=== PATIENT | male | born 1990 | race Caucasian/White ===

== ENCOUNTER 2017-12-19 20:26 | Emergency (ER) | payer SELFPAY ==
[2017-12-19 20:27] VITALS: BP 160/79; PULSE 126; RESP 26; TEMP 37.1; O2SAT 99; BMI 19.5
--- NOTE | 2017-12-19 20:51 | HMH.EDOD ---
ED Disposition Clinical Impression: Drug overdose Qualifiers: Encounter type: initial encounter Injury intent: accidental or unintentional Qualified Code(s): T50.901A - Poisoning by unspecified drugs, medicaments and biological substances, accidental (unintentional), initial encounter Disposition: Home, Self-Care Condition on Discharge: Good Instructions: DI for Drug Overdose in Adults Additional Instructions: see pcp for follow up - Critical Care Critical Care Time: No Attestation: On , the high probability of a clinically significant, sudden or life threatening deterioration of the following system(s) required my full and direct attention, intervention and personal management. The time I documented below is in addition to time spent performing reported procedures but includes the following listed in this critical care notation. Medical Decision Making - Medical Records Medical records reviewed: Yes: I reviewed the patient's medical records. - Darryl Inquiry Pt receiving controlled substance: No Vital Signs: 12/19/17 20:27 12/19/17 22:47 12/19/17 23:00 Temperature 98.7 F 97.8 F 98.7 F Temperature Source Oral Oral Oral Pulse Rate [Right Radial] 126 H 95 H 65 Respiratory Rate 26 H 14 14 Blood Pressure [Right Arm] 160/79 115/61 118/60 Blood Pressure Mean [Right Arm] 106 79 79 Blood Pressure Position [Right Arm] Sitting Sitting Sitting 02 Sat by Pulse Oximetry 99 94 L 94 L Oxygen Delivery Method Room Air Room Air 12/19/17 23:30 12/20/17 01:30 12/20/17 02:00 Temperature 98.7 F Temperature Source Oral Pulse Rate [Right Radial] 76 87 79 Respiratory Rate 20 20 20 Blood Pressure [Right Arm] 114/67 110/56 104/56 Blood Pressure Mean [Right Arm] 82 74 72 Blood Pressure Position [Right Arm] Sitting Supine 02 Sat by Pulse Oximetry 98 99 100 Oxygen Delivery Method Room Air Room Air Room Air 12/20/17 04:00 12/20/17 06:00 Temperature Temperature Source Pulse Rate [Right Radial] 79 87 Respiratory Rate 20 18 Blood Pressure [Right Arm] 104/64 110/74 Blood Pressure Mean [Right Arm] 77 86 Blood Pressure Position [Right Arm] 02 Sat by Pulse Oximetry 99 97 Oxygen Delivery Method Room Air Orders (Tests/Meds): ED MEDICATIONS Discontinued Medications Generic Name Dose Route Start Last Admin Trade Name Freq PRN Reason Stop Dose Admin Haloperidol Lactate 2 mg 12/19/17 20:36 12/19/17 20:30 Haldol 5mg/Ml Vial IM 12/19/17 20:37 2 mg ONCE ONE Administration Haloperidol Lactate 5 mg 12/19/17 20:36 12/19/17 20:35 Haldol 5mg/Ml Vial IM 12/19/17 20:37 5 mg ONCE ONE Administration Overdose HPI - General Chief Complaint: Overdose Stated Complaint: overdose Time Seen by Provider: 12/19/17 20:51 Mode of Arrival: EMS Source of Information: Patient, EMS, Law Enforcement, Medical Record Limitations: No Limitations Description of Symptoms (Recalled from ER Triage Doc. by RN): received pt by ems, per ems, patient has done drugs of unknown amount and is hallucinating and paranoid. pt is violent and confused and combative. pd is at bedside for assistance. 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 nino VARGAS complaint: other (drug misuse ) Onset (ago): hour(s) Timing confirmed by: other (police) Intent: other (nonintentional) How Overdose Was Discovered: called 911 Context: Intentional Overdose: drug/ETOH problems Context: Accidental Overdose: wanted to get high - Related Data Home Medications Medication Instructions Recorded Confirmed No Known Home Medications [No 12/19/17 12/19/17 Known Home Medications] Allergies Allergy/AdvReac Type Severity Reaction Status Date / Time ibuprofen [IBUPROFEN] Allergy Severe S-SWELLS-OR Verified 12/19/17 20:35 AL/THROAT SHELLFISH (FOOD) Allergy Intermediate I-RASH Uncoded 09/13/17 14:51 [facility] History I have reviewed the patient's past medical history: Yes Medical
--- NOTE | 2017-12-19 20:54 | ED_ITS ---
ED Disposition Clinical Impression: Drug overdose Qualifiers: Encounter type: initial encounter Injury intent: accidental or unintentional Qualified Code(s): T50.901A - Poisoning by unspecified drugs, medicaments and biological substances, accidental (unintentional), initial encounter Disposition: Home, Self-Care Condition on Discharge: Good Instructions: DI for Drug Overdose in Adults Additional Instructions: see pcp for follow up - Critical Care Critical Care Time: No Attestation: On , the high probability of a clinically significant, sudden or life threatening deterioration of the following system(s) required my full and direct attention, intervention and personal management. The time I documented below is in addition to time spent performing reported procedures but includes the following listed in this critical care notation. Medical Decision Making - Medical Records Medical records reviewed: Yes: I reviewed the patient's medical records. - Darryl Inquiry Pt receiving controlled substance: No Vital Signs: 12/19/17 20:27 12/19/17 22:47 12/19/17 23:00 Temperature 98.7 F 97.8 F 98.7 F Temperature Source Oral Oral Oral Pulse Rate [Right Radial] 126 H 95 H 65 Respiratory Rate 26 H 14 14 Blood Pressure [Right Arm] 160/79 115/61 118/60 Blood Pressure Mean [Right Arm] 106 79 79 Blood Pressure Position [Right Arm] Sitting Sitting Sitting 02 Sat by Pulse Oximetry 99 94 L 94 L Oxygen Delivery Method Room Air Room Air 12/19/17 23:30 12/20/17 01:30 12/20/17 02:00 Temperature 98.7 F Temperature Source Oral Pulse Rate [Right Radial] 76 87 79 Respiratory Rate 20 20 20 Blood Pressure [Right Arm] 114/67 110/56 104/56 Blood Pressure Mean [Right Arm] 82 74 72 Blood Pressure Position [Right Arm] Sitting Supine 02 Sat by Pulse Oximetry 98 99 100 Oxygen Delivery Method Room Air Room Air Room Air 12/20/17 04:00 12/20/17 06:00 Temperature Temperature Source Pulse Rate [Right Radial] 79 87 Respiratory Rate 20 18 Blood Pressure [Right Arm] 104/64 110/74 Blood Pressure Mean [Right Arm] 77 86 Blood Pressure Position [Right Arm] 02 Sat by Pulse Oximetry 99 97 Oxygen Delivery Method Room Air Orders (Tests/Meds): ED MEDICATIONS Discontinued Medications Generic Name Dose Route Start Last Admin Trade Name Freq PRN Reason Stop Dose Admin Haloperidol Lactate 2 mg 12/19/17 20:36 12/19/17 20:30 Haldol 5mg/Ml Vial IM 12/19/17 20:37 2 mg ONCE ONE Administration Haloperidol Lactate 5 mg 12/19/17 20:36 12/19/17 20:35 Haldol 5mg/Ml Vial IM 12/19/17 20:37 5 mg ONCE ONE Administration Overdose HPI - General Chief Complaint: Overdose Stated Complaint: overdose Time Seen by Provider: 12/19/17 20:51 Mode of Arrival: EMS Source of Information: Patient, EMS, Law Enforcement, Medical Record Limitations: No Limitations Description of Symptoms (Recalled from ER Triage Doc. by RN): received pt by ems , per ems, patient has done drugs of unknown amount and is hallucinating and paranoid. pt is violent and confused and combative. pd is at bedside for assistance. - History of Present Illness HPI Narrative: used meth and had pschych
[2017-12-19 22:47] VITALS: BP 115/61; PULSE 95; RESP 14; TEMP 36.6; O2SAT 94
[2017-12-19 23:00] VITALS: BP 118/60; PULSE 65; RESP 14; TEMP 37.1; O2SAT 94
[2017-12-19 23:30] VITALS: BP 114/67; PULSE 76; RESP 20; TEMP 37.1; O2SAT 98
[2017-12-20 01:30] VITALS: BP 110/56; PULSE 87; RESP 20; O2SAT 99
--- NOTE | 2017-12-20 01:44 | PC.NURSE ---
pt mother updated on plan of care. pt remains disoriented and difficult to arouse. vitals stable. mom to report to ed in the am at approx 0700 to excelsior picker patient for dc home.
[2017-12-20 02:00] VITALS: BP 104/56; PULSE 79; RESP 20; O2SAT 100
[2017-12-20 04:00] VITALS: BP 104/64; PULSE 79; RESP 20; O2SAT 99
--- NOTE | 2017-12-20 04:32 | PC.NURSE ---
PATIENT CONTINUES TO SLEEP SOUNDLY IN STRETCHER WITH STABLE VS. PT AWAKENS EASILY TO VOICE, TAKES PO FLUIDS, AND GOES BACK TO SLEEP. NO NEEDS IDENTIFIED AT THIS TIME.
[2017-12-20 06:00] VITALS: BP 110/74; PULSE 87; RESP 18; O2SAT 97
--- NOTE | 2017-12-20 06:12 | PC.NURSE ---
PT HAS CONTINUED TO SLEEP SOUNDLY THROUGHOUT NIGHT. PT CONTINUES TO AWAKE TO VERBAL STIMULATION. DENIES PAIN. PT AWAITING MOTHERS ARRIVAL FOR DC.
[2017-12-20 09:30] VITALS: BP 112/67; PULSE 84; RESP 20; TEMP 36.8; O2SAT 96
--- NOTE | 2017-12-20 09:52 | PC.NURSE ---
Multiple attempts to contact pt mother to come pick him up. Mothers phone goes straight to voicemail when called.
[2017-12-20 10:50] VITALS: BP 123/80; PULSE 109; RESP 20; TEMP 36.7; O2SAT 96
== END 2017-12-20 10:50 | disposition home or self-care (01) ==
PROVIDERS: Emergency Provider Emergency Medicine
DX: T40.3X1A Poisoning by methadone, accidental (unintentional), initial encounter (principal); T40.7X1A Poisoning by cannabis (derivatives), accidental (unintentional), initial encounter; F17.210 Nicotine dependence, cigarettes, uncomplicated
CPT/HCPCS: 99285

== ENCOUNTER 2020-10-30 04:09 | Inpatient (IN) | payer MEDICARE, SELFPAY ==
[2020-10-30] VITALS (32 sets, daily range): BP systolic 98–162; BP diastolic 46–98; PULSE 64–114; RESP 15–18; TEMP 36.4–43; O2SAT 93–100; BMI 18.1
--- NOTE | 2020-10-30 04:29 | PC.NURSE ---
Spoke with Kelvin, Pharmacist in regards to Vanc dosing. He recommends 1.25gm loading dose then 1gm IV Q12H.
[2020-10-30 04:36] LABS: Basophils # 0.1 K/mm3 (0-0.2); Basophils % 0.5 % (0.1-2.0); Eosinophils # 0.2 K/mm3 (0.0-0.4); Eosinophils % 0.7 % (0.1-12.0); Hematocrit 47.9 % (42.0-52.0); Hemoglobin 15.4 g/dL (14.1-18.0); Lymphocytes # 2.8 K/mm3 (0.7-4.5); Lymphocytes % 12.5 % (10-50); Mean Corpuscular HGB Conc 32.1 g/dL (31.8-35.4); Mean Corpuscular Hemoglobin 27.1 pg (27.0-31.2); Mean Corpuscular Volume 84.4 fl (80-94); Monocytes # 1.7 K/mm3 (0.1-1.0); Monocytes % 7.5 % (1.7-9.3); Neutrophils # 17.6 K/mm3 (1.8-7.8); Neutrophils % 78.7 % (37.0-80.0); Platelet Count 258 K/mm3 (142-424); Red Blood Count 5.67 M/mm3 (4.60-6.20); Red Cell Distribution Width 12.5 % (11.5-17.5); White Blood Count 22.4 K/mm3 (4.8-10.8)
[2020-10-30 04:43] LABS: MANUAL DIFFERENTIAL MANUAL DIFFERENTIAL (MANUAL DIFF)
[2020-10-30 04:45] LABS: Alanine Aminotransferase 221 U/L (12-78); Albumin Level 4.5 g/dl (3.5-5.0); Alkaline Phosphatase 107 U/L (38-126); Anion Gap 11.4 mEq/L (5-15); Aspartate Amino Transferase 76 U/L (17-59); Bilirubin,Total 0.9 mg/dl (0.2-1.3); Blood Urea Nitrogen 16 mg/dl (9-20); Calcium 10.1 mg/dl (8.4-10.2); Carbon Dioxide 30 mmol/L (22.0-30.0); Chloride 96 mmol/L (98-107); Creatinine Clearance Estimated 101 mL/min (50-200); Estimated Glomerular Filt Rate 100 ml/min (>60); GFR (African American) 121 ML/MIN (>60); Globulin 4.6 g/dL (1.3-3.2); Glucose 125 mg/dl (74-100); Lactic Acid 1.5 mmol/L (0.7-2.1); Potassium 4.4 mmoL/L (3.5-5.1); Sodium 133 mmol/L (136-145); Total Protein,Serum 9.1 g/dl (6.3-8.2)
[2020-10-30 04:50] LABS: C-Reactive Protein 52.3 mg/L (0-4)
[2020-10-30 05:04] LABS: Procalcitonin 0.369 ng/mL (0.0-2.0)
[2020-10-30 05:49] LABS: Erythrocyte Sedimentation Rate 4 mm/hr (0-15)
[2020-10-30 05:50] LABS: Coronavirus 19 IgG Antibody Negative (Negative); Coronavirus 19 IgM Antibody Negative (Negative)
[2020-10-30 06:04] LABS: Lymphocytes % 15 % (10-50); Monocytes % 6 % (2-9); Neutrophils % 79 % (42-76); Platelet Estimate Normal; Stomatocytes 1+; Total Cells Counted 100
--- NOTE | 2020-10-30 06:29 | HMH.EDSKAF ---
ED Disposition Clinical Impression: Elevated liver enzymes, IVDU (intravenous drug user), SIRS (systemic inflammatory response syndrome) Abscess of skin or subcutaneous tissue Qualifiers: Site of cutaneous abscess: extremity Site of cutaneous abscess of extremity: upper extremity Laterality: left Qualified Code(s): L02.414 - Cutaneous abscess of left upper limb Disposition: Admitted as Observation Condition on Discharge: Fair Instructions: DI for Skin Abscess Referrals: PCP,No [Primary Care Provider] - - Critical Care Critical Care Time: No Attestation: On 10/30/20, the high probability of a clinically significant, sudden or life threatening deterioration of the following system(s) required my full and direct attention, intervention and personal management. The time I documented below is in addition to time spent performing reported procedures but includes the following listed in this critical care notation. Medical Decision Making - Medical Records Medical records reviewed: Yes: I reviewed the patient's medical records. - Darryl Inquiry Pt receiving controlled substance: No Vital Signs: 10/30/20 04:10 10/30/20 04:30 10/30/20 05:00 Temperature 99.0 F Temperature Source Oral Pulse Rate [Right] 114 H 76 74 Respiratory Rate 18 17 17 Blood Pressure [Right Arm] 114/70 119/74 115/71 Blood Pressure Mean [Right Arm] 84 89 85 Blood Pressure Source [Right Arm] Automatic Cuff Automatic Cuff Automatic Cuff Blood Pressure Position [Right Arm] Sitting Supine Supine 02 Sat by Pulse Oximetry 95 98 98 Oxygen Delivery Method Room Air Room Air Room Air 10/30/20 05:30 10/30/20 06:00 Temperature Temperature Source Pulse Rate [Right] 84 71 Respiratory Rate 17 15 Blood Pressure [Right Arm] 121/74 115/69 Blood Pressure Mean [Right Arm] 89 84 Blood Pressure Source [Right Arm] Automatic Cuff Automatic Cuff Blood Pressure Position [Right Arm] Supine Supine 02 Sat by Pulse Oximetry 98 97 Oxygen Delivery Method Room Air Room Air - Lab Data Lab results reviewed: Yes: I reviewed the patient's lab results. Lab Results 10/30/20 04:25: WBC 22.4 H*, RBC 5.67, Hgb 15.4, Hct 47.9, MCV 84.4, MCH 27.1, MCHC 32.1, RDW 12.5, Plt Count 258, MPV 9.0, Neut % (Auto) 78.7, Lymph % (Auto) 12.5, [place] % (Auto) 7.5, Eos % (Auto) 0.7, Baso % (Auto) 0.5, Neut # (Auto) 17.6 H, Lymph # (Auto) 2.8, [place] # (Auto) 1.7 H, Eos # (Auto) 0.2, Baso # (Auto) 0.1, Total Counted 100, Neutrophils % (Manual) 79 H, Lymphocytes % (Manual) 15, Monocytes % (Manual) 6, Platelet Estimate Normal, RBC Morphology Not Reportable, Stomatocytes 1+, ESR 4 10/30/20 04:25: Sodium 133 L, Potassium 4.4, Chloride 96 L, Carbon Dioxide 30, Anion Gap 11.4, BUN 16, Creatinine 0.90, Estimated Creat Clear 101, Estimated GFR 100, Est GFR ( Amer) 121, Glucose 125 H, Calcium 10.1, Total Bilirubin 0.9, AST 76 H, ALT 221 H, Alkaline Phosphatase 107, C-Reactive Protein 52.3 H, Total Protein 9.1 H, Albumin 4.5, Globulin 4.6 H, Albumin/Globulin Ratio 1.0 L, Procalcitonin 0.369 10/30/20 04:25: Lactate 1.5 10/30/20 04:25: SARS-CoV-2 IgG Ab (Rapid) Negative, SARS-CoV-2 IgM Ab (Rapid) Negative Result diagrams: 10/30/20 04:25 10/30/20 04:25 Orders (Tests/Meds): ED MEDICATIONS Generic Name Dose Route Start Last Admin Trade Name Freq PRN Reason Stop Dose Admin Sodium Chloride 1,000 mls @ 999 mls/hr 10/30/20 04:30 10/30/20 04:32 Sod Chlor 0.9% 1000ml Bag IV 10/30/20 05:30 999 mls/hr .Q1H1M YOSSI Administration Vancomycin HCl 1,000 mg/ 250 mls @ 125 mls/hr 10/30/20 04:29 10/30/20 06:30 Sodium Chloride IV 11/13/20 04:28 Not Given Q12 YOSSI Protocol Discontinued Medications Generic Name Dose Route Start Last Admin Trade Name Freq PRN Reason Stop Dose Admin Vancomycin HCl 1,250 mg/ 250 mls @ 125 mls/hr 10/30/20 04:32 10/30/20 04:32 Sodium Chloride IV 10/30/20 06:31 125 mls/hr ONCE ONE Administration Protocol ORDERS Category Date
--- NOTE | 2020-10-30 06:40 | PC.NURSE ---
Jake spoke to Marcos regarding pt admission and gen surg consult
--- NOTE | 2020-10-30 07:22 | HMH.GSCON ---
*Admission Date: 10/30/20 *Reason for consult:: Abscess *History of present illness: This is a 30-year-old gentleman seen in consultation from the service of Dr. Lake after being evaluated emergency department for a left antecubital fossa abscess. HPI from emergency department evaluation is forwarded below. From ED Evaluation: Skin/Abscess/FB HPI - General Chief complaint: Skin/Abscess/Foreign Body Stated complaint: Abscess Time Seen by Provider: 10/30/20 04:15 Mode of Arrival: EMS Source of Information: Patient, EMS, Medical Record Limitations: No Limitations Description of Symptoms (Recalled from ER Triage Doc. by RN): Pt has abscess to left AC after shooting Heroin there 4 days ago. Area is open and draining. - History of Present Illness HPI narrative: pt with hx of ivdu and has draining abscess lt forearm - he denied any other c/o MD complaint: abscess/boil Onset (ago): day(s) Tetanus up to date: unsure Location: LUE Severity: moderate Context: IVDA Associated symptoms: denies other symptoms Treatments prior to arrival: none Review of Systems - Constitutional Denies chills - Eyes Denies change in vision - ENT Denies difficulty swallowing - *Cardiovascular Denies chest pain - *Respiratory Denies cough - *Gastrointestinal Denies abdominal pain - *Genitourinary Denies difficulty urinating - *Musculoskeletal Denies abnormal walking - Integumentary/Breasts Reports boil - *Neurologic Denies abnormal speech - Psychiatric Denies anxiety - Endocrine Denies cold intolerance - Hematologic/Lymphatic Denies easy bleeding - Allergic/Immunologic Denies wheezing [facility] History Medical History: Denies:: Cancer, Diabetes Mellitus Type 1, Diabetes Mellitus Type 2, MRSA *Have you ever received a pneumonia vaccine?: No *Have you received a flu vaccine this season?: Yes Amputation: No Fractures: No - *Social History Smoking Status: Current every day smoker Tobacco Type: cigarettes # Packs/Day (cigarettes): 1 Alcohol Intake: current Alcohol Intake Frequency:: other Substance Use Type: heroin, IV drugs 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 *Occupational Status:: unemployed Housing: homeless *Travel in the last 8 weeks: None Family Hx:: No significant family history Meds Home Medications Medication Instructions Recorded Confirmed Type No Known Home Medications 10/30/20 10/30/20 History Allergies Allergy/AdvReac Type Severity Reaction Status Date / Time ibuprofen [IBUPROFEN] Allergy Severe S-SWELLS-OR Verified 04/19/19 20:56 AL/THROAT shellfish derived Allergy Intermediate Rash Verified 10/30/20 08:13 Exam Vital signs and Labs for Last 24 Hours: Temp Pulse Resp BP Pulse Ox 99.0 F 71 15 115/69 97 10/30/20 04:10 10/30/20 06:00 10/30/20 06:00 10/30/20 06:00 10/30/20 06:00 Laboratory Results - last 24 hr 10/30/20 04:25: WBC 22.4 H*, RBC 5.67, Hgb 15.4, Hct 47.9, MCV 84.4, MCH 27.1, MCHC 32.1, RDW 12.5, Plt Count 258, MPV 9.0, Neut % (Auto) 78.7, Lymph % (Auto) 12.5, [place] % (Auto) 7.5, Eos % (Auto) 0.7, Baso % (Auto) 0.5, Neut # (Auto) 17.6 H, Lymph # (Auto) 2.8, [place] # (Auto) 1.7 H, Eos # (Auto) 0.2, Baso # (Auto) 0.1, Total Counted 100, Neutrophils % (Manual) 79 H, Lymphocytes % (Manual) 15, Monocytes % (Manual) 6, Platelet Estimate Normal, RBC Morphology Not Reportable, Stomatocytes 1+, ESR 4 10/30/20 04:25: Sodium 133 L, Potassium 4.4, Chloride 96 L, Carbon Dioxide 30, Anion Gap 11.4, BUN 16, Creatinine 0.90, Estimated Creat Clear 101, Estimated GFR 100, Est GFR ( Amer) 121, Glucose 125 H, Calcium 10.1, Total Bilirubin 0.9, AST 76 H, ALT 221 H, Alkaline Phosphatase 107, C-Reactive Protein 52.3 H, Total Protein 9.1 H, Albumin 4.5, Globulin 4.6 H, Albumin/Globulin Ratio 1.0 L, Procalcitonin 0.369 10/30/20 04:25: Lactate 1.5 10/30/20 04:25: SARS-CoV-2 IgG Ab (Rapid) Negative, SARS-CoV-2 IgM Ab (Rapid) Negative I & O for Last 24 hours: Intake & Output
--- NOTE | 2020-10-30 07:45 | PC.NURSE ---
pt changed into hospital gown. pt's belonging placed in belonging bag.
--- NOTE | 2020-10-30 08:09 | P.CONPHA_ITS ---
- Pharmacy Consult Date: 10/30/20 Time: 08:09 Referring provider: DR. GARCIA Reason for Consult:: VANCOMYCIN DOSING Allergies and ADEs:: Allergies Allergy/AdvReac Type Severity Reaction Status Date / Time ibuprofen [IBUPROFEN] Allergy Severe S-SWELLS-OR Verified 04/19/19 20:56 AL/THROAT SHELLFISH (FOOD) Allergy Intermediate I-RASH Uncoded 09/13/17 14:51 Home Medications:: Home Medications Medication Instructions Recorded Confirmed Type No Known Home Medications 10/30/20 10/30/20 History Height: 1.8 m Weight: 58.967 kg Laboratory Results:: Laboratory Results - last 24 hr 10/30/20 04:25: WBC 22.4 H*, RBC 5.67, Hgb 15.4, Hct 47.9, MCV 84.4, MCH 27.1, MCHC 32.1, RDW 12.5, Plt Count 258, MPV 9.0, Neut % (Auto) 78.7, Lymph % (Auto) 12.5, [place] % (Auto) 7.5, Eos % (Auto) 0.7, Baso % (Auto) 0.5, Neut # (Auto) 17.6 H, Lymph # (Auto) 2.8, [place] # (Auto) 1.7 H, Eos # (Auto) 0.2, Baso # (Auto) 0.1, Total Counted 100, Neutrophils % (Manual) 79 H, Lymphocytes % (Manual) 15, Monocytes % (Manual) 6, Platelet Estimate Normal, RBC Morphology Not Reportable, Stomatocytes 1+, ESR 4 10/30/20 04:25: Sodium 133 L, Potassium 4.4, Chloride 96 L, Carbon Dioxide 30, Anion Gap 11.4, BUN 16, Creatinine 0.90, Estimated Creat Clear 101, Estimated GFR 100, Est GFR ( Amer) 121, Glucose 125 H, Calcium 10.1, Total Bilirubin 0.9, AST 76 H, ALT 221 H, Alkaline Phosphatase 107, C-Reactive Protein 52.3 H, Total Protein 9.1 H, Albumin 4.5, Globulin 4.6 H, Albumin/Globulin Ratio 1.0 L, Procalcitonin 0.369 10/30/20 04:25: Lactate 1.5 10/30/20 04:25: SARS-CoV-2 IgG Ab (Rapid) Negative, SARS-CoV-2 IgM Ab (Rapid) Negative Medical History: Denies:: Cancer, Diabetes Mellitus Type 1, Diabetes Mellitus Type 2, MRSA Assessment and Plan (1) Abscess of skin or subcutaneous tissue Status: Acute Qualifiers: Site of cutaneous abscess: extremity Site of cutaneous abscess of extremity: upper extremity Laterality: left Qualified Code(s): L02.414 - Cutaneous abscess of left upper limb Category: Medical Code(s): L02.91 - Cutaneous abscess, unspecified - Assessment and plan all Dx Assessment and Plan for all problems:: Age: 30 yo Serum creatinine: 0.9 mg/dL Height: 71.0 Inches Weight (kg): 58.967 Assessment: IBW (kg): 75.30 Dosing wt(kg): 58.967 Estimated Creatinine clearance (ml/min): 101.0 CRCL method: Cockcroft and Gault using ibw(default). Drug selected: Vancomycin Loading dose (mg): 0 Vd (liters): 47.2 (factor used: 0.8 L/kg) Walter (hr-1): 0.088 Half life (hrs): 7.88 Recommended dose: 1250 mg Interval: 12 hrs Infusion time (hrs): 2.0 Predicted peak (mcg/mL): 37.2 Predicted trough (mcg/mL): 15.43 Total body weight is being used for vancomycin dosing. Recommendations: Give Vancomycin 1250 mg q 12 hrs with an expected Cpeak of 37.2 mcg/ml and an expected Ctrough of 15.43 mcg/ml Thank you for the consult, will continue to follow.
--- NOTE | 2020-10-30 08:15 | PC.NURSE ---
pt c/o pain 07/05 lt arm .
--- NOTE | 2020-10-30 09:30 | PC.NURSE ---
pt updated on plan of care
--- NOTE | 2020-10-30 09:41 | PC.NURSE ---
Pt sleeping at this time. No needs
--- NOTE | 2020-10-30 10:25 | HMH.HP ---
*Admission Date: 10/30/20 <Agnes Cavanaugh 10/30/20 10:30> *Chief complaint: abscess after IV drug use <Agnes Cavanaugh 10/30/20 10:30> *History of present illness: Mr. Monterroso is a 30yo male who presented to the ER with an abscess in the left antecubital fossa after shooting heroin there four days ago. His white blood cell count was elevated at 22.4. His liver function tests were also elevated. His C-reactive protein was elevated as well. He had negative Covid antibodies. A culture was taken of the left arm and his blood cultures are still pending. The area was open and draining and he was admitted and surgery was consulted. He was started on IV vancomycin. <Agnes Cavanaugh 10/30/20 12:55> [facility] History I have reviewed the patient's past medical history: Yes <Agnes Cavanaugh 10/30/20 10:30> Medical History: Denies:: Gastrointestinal Bleed <Leda Lake 10/30/20 13:35> Denies:: Cancer, Diabetes Mellitus Type 1, Diabetes Mellitus Type 2, MRSA <Agnes Cavanaugh 10/30/20 10:30> *Have you ever received a pneumonia vaccine?: No <Agnes Cavanaugh 10/30/20 10:30> *Have you received a flu vaccine this season?: Yes <Agnes Cavanaugh 10/30/20 10:30> Amputation: No <Agnes Cavanaugh 10/30/20 10:30> Fractures: No <Agnes Cavanaugh 10/30/20 10:30> - *Social History Smoking Status: Current every day smoker <Agnes Cavanaugh 10/30/20 10:30> Tobacco Type: cigarettes <Agnes Cavanaugh 10/30/20 10:30> # Packs/Day (cigarettes): 1 <Agnes Cavanaugh 10/30/20 10:30> Alcohol Intake: never <Agnes Cavanaugh 10/30/20 10:30> Substance Use Type: painkillers, methamphetamine <Leda Lake 10/30/20 13:35> heroin, IV drugs <Agnes Cavanaugh 10/30/20 10:30> 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 <Agnes Cavanaugh 10/30/20 10:30> *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) <Leda Lake 10/30/20 13:35> unemployed <Agnes Cavanaugh 10/30/20 10:30> Housing: homeless <Agnes Cavanaugh 10/30/20 10:30> *Travel in the last 8 weeks: None <Agnes Cavanaugh 10/30/20 10:30> Family Hx:: Substance abuse <Leda Lake 10/30/20 13:35> Review of Systems - Constitutional Denies body ache(s), Denies chills <Leda Lake 10/30/20 13:35> - Eyes Denies change in vision <Leda Lake 10/30/20 13:35> - ENT Reports mouth lesions, Denies difficulty swallowing <Leda Lake 10/30/20 13:35> - *Cardiovascular Denies chest pain, Denies shortness of breath <Leda Lake 10/30/20 13:35> - *Respiratory Reports chest congestion, Reports cough <Leda Lake 10/30/20 13:35> - *Gastrointestinal Denies abdominal pain <Leda Lake 10/30/20 13:35> - *Genitourinary Denies difficulty urinating <Leda Lake 10/30/20 13:35> - *Musculoskeletal Denies abnormal walking <Leda Lake 10/30/20 13:35> - Integumentary/Breasts Denies bleeding lesions <Leda Lake 10/30/20 13:35> - *Neurologic Denies abnormal walking, Denies abnormal speech <Agnes Cavanaugh 10/30/20 10:30> - Psychiatric Reports depression <Leda Lake 10/30/20 13:35> Comments: In the past has completed a 6-month rehabilitation program and stayed sober for 17 months. <Leda Lake 10/30/20 13:35> Meds Home Medications Medication Instructions Recorded Confirmed Type No Known Home Medications 10/30/20 10/30/20 History <Leda Lake - 10/30/20 13:35> Allergies Allergy/AdvReac Type Severity Reaction Status Date / Time ibuprofen [IBUPROFEN] Allergy Severe S-SWELLS-OR Verified 04/19/19 20:56 AL/THROAT shellfish derived Allergy Intermediate Rash Verified 10/30/20 08:13 <Leda Lake - 10/30/20 13:35> Exam Vital signs and Labs for Last 24 Hours: Temp Pulse Resp BP Pulse Ox 98.3 F 68 16 110/60 95 10/30/20 11:48 02
--- NOTE | 2020-10-30 10:25 | PC.NURSE ---
to surgery per wheelchair
--- NOTE | 2020-10-30 11:37 | HMH.OPNOTE ---
Date of procedure: 10/30/20 Pre-op Diagnosis:: Left antecubital fossa abscess Post-op Diagnosis:: Same Procedure performed:: Incision and drainage of left antecubital fossa abscess Surgeon:: Carlitos Edgar MD SEAT JOINER CHAINSTITCH:: Lorenzo Castro Anesthesia: LMA Estimated blood loss (mL): 5 Operative findings:: Complex abscess in deep subcutaneous tissue No obvious subfascial abscess Operative note:: After informed consent was obtained the patient was taken to the operating room and placed in the supine position. General anesthesia with laryngeal mask airway was achieved. His left arm was prepped and draped in sterile fashion. 2 areas of spontaneous drainage/opening were noted. Electrocautery was utilized to transect through the skin and superficial subcutaneous tissue to create a single opening into the abscess cavity. Purulent fluid was obtained for Gram stain/culture. Careful evaluation revealed a somewhat complex cavity in the subcutaneous tissue with no obvious transfascial/subfascial involvement. The entire pocket was carefully evacuated/irrigated. Moistened Kerlix was placed in the abscess cavity and then infiltrated with 1% lidocaine. Dressings were applied and the patient was transferred to recovery in stable condition after removal of his laryngeal mask airway. Condition: stable Disposition: PACU Specimens:: Fluid for Gram stain/culture Complications:: No immediate
--- NOTE | 2020-10-30 11:47 | P.PN_ITS ---
[facility] Anesthesia Checklist - Patient Identification Patient Identification: Arm Band - Structural Data Admitted From: Home Planned Operative Procedure/s: I&D Left AC Fossa Consent for Planned Operative Procedure(s) Verified: Yes Verified Documents: Surgical Consent, History and Physical - NPO Status Verified Time NPO: 00:00 - Additional verifications Anesthesia Reactions: No - Airway Assessment C-Spine Mobility Assessed: Yes (mp2) TMJ Mobility Assessed: Yes Dentition: Good Dentition - Neurological Assessment Level of Consciousness: Awake, Alert - Anesthesia Plan Anesthesia Risk discussed: Yes Anesthesia Plan: Verified ASA Class: II Anesthesia Type: General [facility] History I have reviewed the patient's past medical history: Yes Medical History: Reports:: Asthma Denies:: Cancer, Diabetes Mellitus Type 1, Diabetes Mellitus Type 2, MRSA *Have you ever received a pneumonia vaccine?: No *Have you received a flu vaccine this season?: Yes Anesthesia experience/problems:: nac Other Surgeries: Yes: Other Amputation: No Fractures: No - *Social History Smoking Status: Current every day smoker Tobacco Type: cigarettes # Packs/Day (cigarettes): 1 Alcohol Intake: current Alcohol Intake Frequency:: other Substance Use Type: heroin, IV drugs, methamphetamine 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
--- NOTE | 2020-10-30 11:48 | HMH.ANESI ---
[facility] Anesthesia Record Part I Intake, IV Amount: 500 Estimated blood loss (mL): 5 Urine output (mL): 0 Blood Pressure: 110/60 SaO2: 96 Pulse Rate: 97 Respiratory Rate: 16 Temperature: 98.3 F Patient is:: Drowsy, Stable Stable to PACU at:: 11:40
--- NOTE | 2020-10-30 12:34 | PC.NURSE ---
arrived on floor from surgery
--- NOTE | 2020-10-30 13:36 | XR_ITS ---
PROCEDURE: XR CHEST 2V CLINICAL HISTORY: rhonchi left base COMPARISON: CR CXR1 CHEST-PORTABLE from 12/22/2014 CR CXR2V XR chest 2V from 06/10/2018 FINDINGS: The cardiomediastinal silhouette and pulmonary vascularity are within normal limits. The lungs are clear without infiltrates, suspicious nodules, or pleural effusions. No acute bony abnormalities. IMPRESSION: No acute findings. Dictated by: Vimal Coppola MD 10/30/2020 15:18 Vimal Coppola MD in OV 10/30/2020 15:18
--- NOTE | 2020-10-30 15:13 | HMH.PHAVTE ---
[facility] Pharmacy VTE Monitoring - Patient Demographics Admission date: 10/30/20 Report Date: 10/30/20 Time: 15:13 Allergies/Adverse Reactions: Patient Allergies ibuprofen [IBUPROFEN] Allergy (Severe, Verified 04/19/19 20:56) [id number]/THROAT shellfish derived Allergy (Intermediate, Verified 10/30/20 08:13) Rash Height: 1.8 m Weight: 58.967 kg Patient Problems: Current Active Problems Elevated liver enzymes (Acute) Abscess of skin or subcutaneous tissue (Acute) IVDU (intravenous drug user) (Acute) SIRS (systemic inflammatory response syndrome) (Acute) - VTE Risk Labs: VTE Related Lab Results Hgb 15.4 g/dL (14.1-18.0) 10/30/20 04:25 Hct 47.9 % (42.0-52.0) 10/30/20 04:25 Plt Count 258 K/mm3 (142-424) 10/30/20 04:25 BUN 16 mg/dl (9-20) 10/30/20 04:25 Creatinine 0.90 mg/dl (0.66-1.25) 10/30/20 04:25 Estimated Creat Clear 101 mL/min (50-200) 10/30/20 04:25 Was VTE Risk Assessment Performed: Yes VTE Score: 0 VTE Risk Level: Very Low Risk Clinical Trial Participant: No - Prophylaxis VTE Prophylaxis Ordered?: Yes Types of VTE Prophylaxis: TEDS Knee High
--- NOTE | 2020-10-30 18:30 | PC.NURSE ---
1520- BP was noted to be 109/61 on reassessment
--- NOTE | 2020-10-30 18:32 | PC.NURSE ---
Pt is s/p I and D of LAC. Dressing is clean, dry and intact. He has requested pain meds x1 for report of pain. Pt was resting w/eyes closed on reassessment. Appetite is good. He states has hasn't eaten for 3 days. He is tearful when talking about his addiction and wanting to lead a better life. IV to RAC removed due to being painful per patient. New IV is 22 LFA. Will continue to monitor.
--- NOTE | 2020-10-30 23:45 | PC.NURSE ---
2100 COURTESY ROUND PT AWAKE AND VOICED NO NEEDS AT THIS TIME.
[2020-10-31] VITALS (7 sets, daily range): BP systolic 111–144; BP diastolic 44–81; PULSE 52–84; RESP 14–18; TEMP 36.4–37.2; O2SAT 94–99; BMI 19.1
--- NOTE | 2020-10-31 04:33 | PC.NURSE ---
pt AxOX4, complained of pain in LUE twice this shift and was treated per NOV, remains on room air, ambulating to independently
--- NOTE | 2020-10-31 06:08 | PC.NURSE ---
0600 COURTESY ROUND PATIENT AWAKE . PATIENT STATED NO NEEDS AT THIS TIME . TRASH AND WATER PITCHER REFILLED.
--- NOTE | 2020-10-31 07:04 | HMH.GSPN ---
Subjective Patient reports: no new complaints Progress Note: A&P (1) Abscess of skin or subcutaneous tissue Status: Acute Assessment and plan: Doing well status post incision and drainage. Continue antibiotics for cellulitic component Dressing changes ordered (2) IVDU (intravenous drug user) Status: Acute (3) Elevated liver enzymes Status: Acute (4) SIRS (systemic inflammatory response syndrome) Status: Acute Exam Vital signs and Labs for Last 24 Hours: Temp Pulse Resp BP Pulse Ox 98.0 F 61 16 111/59 L 97 10/31/20 04:00 10/31/20 04:00 10/31/20 06:48 10/31/20 04:00 10/31/20 04:00 I & O for Last 24 hours: Intake & Output 10/28/20 10/29/20 10/30/20 10/31/20 11:59 11:59 11:59 11:59 Intake Total 500 / 500 2306 / 2306 Balance 500 / 500 2306 / 2306 Weight 130 lb 136 lb 6 oz Microbiology Reports for the Last 24 Hours: Microbiology 10/30/20 04:25 Arm,Left - Abscess Gram Stain - Final 10/30/20 04:25 Arm,Left - Abscess Wound Culture - Preliminary NO GROWTH AFTER 24 HOURS 10/30/20 11:27 Arm,Left - Abscess Gram Stain - Final - Constitutional no acute distress - *Routine Respiratory Exam Absent: respiratory distress - *Routine Cardiovascular Exam Present: RRR - *Routine Extremities Exam Comments: dressing in place. no spreading cellulitis.
[2020-10-31 07:43] LABS: Basophils # 0.1 K/mm3 (0-0.2); Basophils % 0.2 % (0.1-2.0); Eosinophils # 0.2 K/mm3 (0.0-0.4); Eosinophils % 0.7 % (0.1-12.0); Hematocrit 40.3 % (42.0-52.0); Hemoglobin 12.3 g/dL (14.1-18.0); Lymphocytes # 3.2 K/mm3 (0.7-4.5); Lymphocytes % 14.8 % (10-50); Mean Corpuscular HGB Conc 30.5 g/dL (31.8-35.4); Mean Corpuscular Hemoglobin 26.2 pg (27.0-31.2); Mean Corpuscular Volume 85.9 fl (80-94); Mean Platelet Volume 10.4 fl (7.4-10.4); Monocytes # 1.5 K/mm3 (0.1-1.0); Monocytes % 6.7 % (1.7-9.3); Neutrophils # 16.9 K/mm3 (1.8-7.8); Neutrophils % 77.6 % (37.0-80.0); Platelet Count 255 K/mm3 (142-424); Red Blood Count 4.69 M/mm3 (4.60-6.20); Red Cell Distribution Width 12.5 % (11.5-17.5); White Blood Count 21.8 K/mm3 (4.8-10.8)
[2020-10-31 07:45] LABS: MANUAL DIFFERENTIAL MANUAL DIFFERENTIAL (MANUAL DIFF)
[2020-10-31 07:46] LABS: Chloride 107 mmol/L (98-107); Potassium 4.1 mmoL/L (3.5-5.1); Sodium 140 mmol/L (136-145)
[2020-10-31 07:49] LABS: Anion Gap 9.1 mEq/L (5-15); Blood Urea Nitrogen 21 mg/dl (9-20); Calcium 9.2 mg/dl (8.4-10.2); Carbon Dioxide 28 mmol/L (22.0-30.0); Creatinine Clearance Estimated 136 mL/min (50-200); Estimated Glomerular Filt Rate 133 ml/min (>60); GFR (African American) 161 ML/MIN (>60); Glucose 123 mg/dl (74-100)
[2020-10-31 08:40] LABS: Lymphocytes % 12 % (10-50); Monocytes % 3 % (2-9); Neutrophils % 85 % (42-76); Platelet Estimate Normal; RBC Morphology Normal; Total Cells Counted 100
--- NOTE | 2020-10-31 08:48 | HMH.ACPN2 ---
Internal Medicine - PN: Subj *Date: 10/31/20 *Time: 08:48 Interval history: Patient was sleeping when I entered the room. He states his hand still hurts. He denies any other pain. He states he ate all of his breakfast. Exam Vital signs and Labs for Last 24 Hours: Temp Pulse Resp BP Pulse Ox 98.9 F 73 14 122/56 L 99 10/31/20 07:56 10/31/20 07:56 10/31/20 07:56 10/31/20 07:56 10/31/20 07:56 Laboratory Results - last 24 hr 10/31/20 06:50: WBC 21.8 H*, RBC 4.69, Hgb 12.3 L, Hct 40.3 L, MCV 85.9, MCH 26.2 L, MCHC 30.5 L, RDW 12.5, Plt Count 255, MPV 10.4, Neut % (Auto) 77.6, Lymph % (Auto) 14.8, [place] % (Auto) 6.7, Eos % (Auto) 0.7, Baso % (Auto) 0.2, Neut # (Auto) 16.9 H, Lymph # (Auto) 3.2, [place] # (Auto) 1.5 H, Eos # (Auto) 0.2, Baso # (Auto) 0.1, Total Counted 100, Neutrophils % (Manual) 85 H, Lymphocytes % (Manual) 12, Monocytes % (Manual) 3, Platelet Estimate Normal, RBC Morphology Normal 10/31/20 06:50: Sodium 140, Potassium 4.1, Chloride 107, Carbon Dioxide 28, Anion Gap 9.1, BUN 21 H D, Creatinine 0.70 D, Estimated Creat Clear 136, Estimated GFR 133, Est GFR ( Amer) 161 D, Glucose 123 H, Calcium 9.2 I & O for Last 24 hours: Intake & Output 10/28/20 10/29/20 10/30/20 10/31/20 11:59 11:59 11:59 11:59 Intake Total 500 / 500 2546 / 2546 Balance 500 / 500 2546 / 2546 Weight 130 lb 136 lb 6 oz Microbiology Reports for the Last 24 Hours: Microbiology 10/30/20 04:25 Arm,Left - Abscess Gram Stain - Final 10/30/20 04:25 Arm,Left - Abscess Wound Culture - Preliminary 10/30/20 11:27 Arm,Left - Abscess Gram Stain - Final - Constitutional no acute distress - *Routine Respiratory Exam Present: CTA bilaterally - *Routine Cardiovascular Exam Present: RRR - *Routine Abdominal Exam Present: soft, normoactive bowel sounds. Absent: tenderness - *Routine Extremities Exam Absent: cyanosis, clubbing, edema - *Routine Skin Exam Comments: left arm with dressing in place - *Routine Neurological Exam Present: alert, oriented X3 Assessment and Plan (1) Abscess of skin or subcutaneous tissue Status: Acute Qualifiers: Site of cutaneous abscess: extremity Site of cutaneous abscess of extremity: upper extremity Laterality: left Qualified Code(s): L02.414 - Cutaneous abscess of left upper limb Category: Medical Code(s): L02.91 - Cutaneous abscess, unspecified (2) IVDU (intravenous drug user) Status: Acute Category: Social Hx Code(s): F19.90 - Other psychoactive substance use, unspecified, uncomplicated (3) Elevated liver enzymes Status: Acute Category: Medical Code(s): R74.8 - Abnormal levels of other serum enzymes (4) SIRS (systemic inflammatory response syndrome) Status: Acute Category: Medical Code(s): R65.10 - Systemic inflammatory response syndrome (SIRS) of non-infectious origin without acute organ dysfunction - Assessment and plan all Dx Assessment and Plan for all problems:: White blood cell count is still elevated. Cultures are pending. We will continue IV antibiotics and surgery to follow.
[2020-10-31 15:40] LABS: Vancomycin,Trough 7.4 ug/mL (5.0-10.0)
--- NOTE | 2020-10-31 15:43 | P.CONPHA_ITS ---
- Pharmacy Consult Date: 10/31/20 Time: 15:43 Referring provider: ARVIN Reason for Consult:: VANCOMYCIN THERAPY Allergies and ADEs:: Allergies Allergy/AdvReac Type Severity Reaction Status Date / Time ibuprofen [IBUPROFEN] Allergy Severe S-SWELLS-OR Verified 04/19/19 20:56 AL/THROAT shellfish derived Allergy Intermediate Rash Verified 10/30/20 08:13 Home Medications:: Home Medications Medication Instructions Recorded Confirmed Type No Known Home Medications 10/30/20 10/30/20 History Height: 1.8 m Weight: 61.859 kg Laboratory Results:: Laboratory Results - last 24 hr 10/31/20 06:50: WBC 21.8 H*, RBC 4.69, Hgb 12.3 L, Hct 40.3 L, MCV 85.9, MCH 26.2 L, MCHC 30.5 L, RDW 12.5, Plt Count 255, MPV 10.4, Neut % (Auto) 77.6, Lymph % (Auto) 14.8, Dickinson % (Auto) 6.7, Eos % (Auto) 0.7, Baso % (Auto) 0.2, Neut # (Auto) 16.9 H, Lymph # (Auto) 3.2, Dickinson # (Auto) 1.5 H, Eos # (Auto) 0.2, Baso # (Auto) 0.1, Total Counted 100, Neutrophils % (Manual) 85 H, Lymphocytes % (Manual) 12, Monocytes % (Manual) 3, Platelet Estimate Normal, RBC Morphology Normal 10/31/20 06:50: Sodium 140, Potassium 4.1, Chloride 107, Carbon Dioxide 28, Anion Gap 9.1, BUN 21 H D, Creatinine 0.70 D, Estimated Creat Clear 136, Estimated GFR 133, Est GFR ( Amer) 161 D, Glucose 123 H, Calcium 9.2 10/31/20 15:05: Vancomycin Trough 7.4 Medical History: Reports:: Asthma Denies:: Cancer, Diabetes Mellitus Type 1, Diabetes Mellitus Type 2, Gastrointestinal Bleed, MRSA Assessment and Plan (1) Abscess of skin or subcutaneous tissue Status: Acute Qualifiers: Site of cutaneous abscess: extremity Site of cutaneous abscess of extremity: upper extremity Laterality: left Qualified Code(s): L02.414 - Cutaneous abscess of left upper limb Category: Medical Code(s): L02.91 - Cutaneous abscess, unspecified (2) IVDU (intravenous drug user) Status: Acute Category: Social Hx Code(s): F19.90 - Other psychoactive substance use, unspecified, uncomplicated (3) Elevated liver enzymes Status: Acute Category: Medical Code(s): R74.8 - Abnormal levels of other serum enzymes (4) SIRS (systemic inflammatory response syndrome) Status: Acute Category: Medical Code(s): R65.10 - Systemic inflammatory response syndrome (SIRS) of non-infectious origin without acute organ dysfunction - Assessment and plan all Dx Assessment and Plan for all problems:: PATIENT VANCOMYCIN TROUGH AFTER THIRD DOSE = 7.4 ON 10/31/20 @1505. WILL CHANGE DOSING INTERVAL TO Q8H TO ACHIEVE HIGHER TROUGHS SECONDARY TO PT AGE AND EXCELLENT RENAL FUNCTION.
--- NOTE | 2020-10-31 17:12 | HMH.ANESII ---
[facility] Anesthesia Record Part II Discharge Time: 12:27 Destination: [facility] PACU nurse assessment reviewed?: Yes Patient Condition:: Good Anesthesia Complications:: None Swallowing reflex intact?: Yes Cyanosis?: No Blood Pressure: 144/81 Pulse Rate: 84 Temperature: 97.6 F Mental Status: Alert & Oriented Pain level:: 4 Nausea and/or vomitting:: None Intake, IV Amount: 0
--- NOTE | 2020-10-31 20:52 | PC.NURSE ---
THIS RN EDUCATED PATIENT IN REGARDS TO PAIN MEDICATION AND PAIN CONTROL. PATIENT VERBALIZED AN UNDERSTANDING. THIS RN CHANGED PATIENT'S DRESSING. LARGE AMOUNT OF SEROSANGUINEOUS DRAINAGE NOTED. THIS RN REMOVED OLD DRESSING, CLEANED SITE WITH NS, PACKED WOUND WITH WET GAUZE, COVERED WITH DRY 4X4, WRAPPED WITH KERLIX AND MILTON BANDAGE. PATIENT SCREAMED AND CRIED DURING THE DRESSING CHANGE. THIS RN ENCOURAGED PATIENT TO BREATHE DEEPLY, PATIENT CONTINUED TO SCREAM AND CRY DEMANDING MORE PAIN MEDICATION. THIS RN EXPLAINED THAT HE HAD RECIEVED 2 NORCO PILLS 30 MINUTES PRIOR. PATIENT STATED NO IT HAS BEEN LIKE OVER 2HRS. THIS RN AGAIN, STATED THAT IT WAS ADMINISTERED AT 1515.
[2020-11-01 04:00] VITALS: BP 126/66; PULSE 75; RESP 18; TEMP 36.6; O2SAT 97
[2020-11-01 05:00] VITALS: BMI 19.1
--- NOTE | 2020-11-01 06:19 | PC.NURSE ---
no acute changes since prior assessment, pt is AxOx4, dressing change done, some serosanguineous drainage noted, pt very tearful during dressing changed, medicated for pain per MAR three times this shift, did have some vomiting at beginning of shift, lungs CTA, remains on room air
[2020-11-01 08:00] VITALS: BP 117/64; PULSE 67; RESP 18; TEMP 36.8; O2SAT 97
--- NOTE | 2020-11-01 08:38 | HMH.ACPN2 ---
Internal Medicine - PN: Subj *Date: 11/01/20 *Time: 08:38 Interval history: Patient states he is feeling a little bit better today. He states the dressing was changed on his arm this morning and it still looks bad but it does look a little bit better than it did. His arm is wrapped today. He denies any pain other than the left arm and states he did not sleep well last night. Exam Vital signs and Labs for Last 24 Hours: Temp Pulse Resp BP Pulse Ox 98.3 F 67 18 117/64 97 11/01/20 08:00 11/01/20 08:00 11/01/20 08:00 11/01/20 08:00 11/01/20 08:00 Laboratory Results - last 24 hr 10/31/20 06:50: Total Counted 100, Neutrophils % (Manual) 85 H, Lymphocytes % (Manual) 12, Monocytes % (Manual) 3, Platelet Estimate Normal, RBC Morphology Normal 10/31/20 15:05: Vancomycin Trough 7.4 I & O for Last 24 hours: Intake & Output 10/29/20 10/30/20 10/31/20 11/01/20 11:59 11:59 11:59 11:59 Intake Total 500 / 500 2546 / 2546 2958 / 2958 Output Total 0 / 0 Balance 500 / 500 2546 / 2546 2958 / 2958 Weight 130 lb 136 lb 6 oz 136 lb 5 oz Microbiology Reports for the Last 24 Hours: Microbiology 10/30/20 04:25 Arm,Left - Abscess Gram Stain - Final 10/30/20 04:25 Arm,Left - Abscess Wound Culture - Preliminary Gram Positive Cocci Gram Positive Cocci#2 10/30/20 11:27 Arm,Left - Abscess Gram Stain - Final 10/30/20 11:27 Arm,Left - Abscess Abscess Culture - Preliminary 10/30/20 04:25 Blood Blood Culture - Preliminary NO GROWTH AFTER 48 HOURS 10/30/20 04:25 Blood Blood Culture - Preliminary NO GROWTH AFTER 48 HOURS - Constitutional no acute distress - *Routine Respiratory Exam Present: CTA bilaterally - *Routine Cardiovascular Exam Present: RRR - *Routine Abdominal Exam Present: soft, normoactive bowel sounds. Absent: tenderness - *Routine Extremities Exam Absent: cyanosis, clubbing, edema - *Routine Skin Exam Present: warm. Absent: rash Comments: left arm wrapped - *Routine Neurological Exam Present: alert, oriented X3 Assessment and Plan (1) Abscess of skin or subcutaneous tissue Status: Acute Qualifiers: Site of cutaneous abscess: extremity Site of cutaneous abscess of extremity: upper extremity Laterality: left Qualified Code(s): L02.414 - Cutaneous abscess of left upper limb Category: Medical Code(s): L02.91 - Cutaneous abscess, unspecified (2) IVDU (intravenous drug user) Status: Acute Category: Social Hx Code(s): F19.90 - Other psychoactive substance use, unspecified, uncomplicated (3) Elevated liver enzymes Status: Acute Category: Medical Code(s): R74.8 - Abnormal levels of other serum enzymes (4) SIRS (systemic inflammatory response syndrome) Status: Acute Category: Medical Code(s): R65.10 - Systemic inflammatory response syndrome (SIRS) of non-infectious origin without acute organ dysfunction - Assessment and plan all Dx Assessment and Plan for all problems:: We will continue IV antibiotics and surgery to follow.
--- NOTE | 2020-11-01 09:06 | HMH.GSPN ---
Subjective Narrative: Patient complains of pain in his left upper extremity. Refusing physician assessment of the wound at this time. Progress Note: A&P (1) Abscess of skin or subcutaneous tissue Status: Acute (2) IVDU (intravenous drug user) Status: Acute (3) Elevated liver enzymes Status: Acute (4) SIRS (systemic inflammatory response syndrome) Status: Acute Assessment and Plan for All Diagnoses:: Continue wound care and antibiotics. Exam Vital signs and Labs for Last 24 Hours: Temp Pulse Resp BP Pulse Ox 98.3 F 67 18 117/64 97 11/01/20 08:00 11/01/20 08:00 11/01/20 08:00 11/01/20 08:00 11/01/20 08:00 Laboratory Results - last 24 hr 10/31/20 15:05: Vancomycin Trough 7.4 I & O for Last 24 hours: Intake & Output 10/29/20 10/30/20 10/31/20 11/01/20 11:59 11:59 11:59 11:59 Intake Total 500 / 500 2546 / 2546 2958 / 2958 Output Total 0 / 0 Balance 500 / 500 2546 / 2546 2958 / 2958 Weight 130 lb 136 lb 6 oz 136 lb 5 oz Microbiology Reports for the Last 24 Hours: Microbiology 10/30/20 04:25 Arm,Left - Abscess Gram Stain - Final 10/30/20 04:25 Arm,Left - Abscess Wound Culture - Preliminary Gram Positive Cocci Gram Positive Cocci#2 10/30/20 11:27 Arm,Left - Abscess Gram Stain - Final 10/30/20 11:27 Arm,Left - Abscess Abscess Culture - Preliminary 10/30/20 04:25 Blood Blood Culture - Preliminary NO GROWTH AFTER 48 HOURS 10/30/20 04:25 Blood Blood Culture - Preliminary NO GROWTH AFTER 48 HOURS - *Routine Extremities Exam Comments: Dressing in place
[2020-11-01 10:43] LABS: Basophils # 0.1 K/mm3 (0-0.2); Basophils % 0.5 % (0.1-2.0); Eosinophils # 0.5 K/mm3 (0.0-0.4); Eosinophils % 3.6 % (0.1-12.0); Hematocrit 41.2 % (42.0-52.0); Lymphocytes # 4.6 K/mm3 (0.7-4.5); Lymphocytes % 33.3 % (10-50); Mean Corpuscular HGB Conc 31.6 g/dL (31.8-35.4); Mean Corpuscular Volume 85.4 fl (80-94); Mean Platelet Volume 8.9 fl (7.4-10.4); Monocytes # 0.8 K/mm3 (0.1-1.0); Monocytes % 5.8 % (1.7-9.3); Neutrophils # 7.7 K/mm3 (1.8-7.8); Neutrophils % 56.8 % (37.0-80.0); Platelet Count 283 K/mm3 (142-424); Red Blood Count 4.82 M/mm3 (4.60-6.20); Red Cell Distribution Width 13.1 % (11.5-17.5); White Blood Count 13.6 K/mm3 (4.8-10.8)
--- NOTE | 2020-11-01 12:12 | HMH.GSPN ---
Subjective Narrative: Continues to complain of pain Progress Note: A&P (1) Abscess of skin or subcutaneous tissue Status: Acute (2) IVDU (intravenous drug user) Status: Acute (3) Elevated liver enzymes Status: Acute (4) SIRS (systemic inflammatory response syndrome) Status: Acute Assessment and Plan for All Diagnoses:: White blood cell count has improved to 13,000 today. Continue antibiotics and wound care. Exam Vital signs and Labs for Last 24 Hours: Temp Pulse Resp BP Pulse Ox 98.3 F 67 18 117/64 97 11/01/20 08:00 11/01/20 08:00 11/01/20 08:00 11/01/20 08:00 11/01/20 08:00 Laboratory Results - last 24 hr 10/31/20 15:05: Vancomycin Trough 7.4 11/01/20 10:35: WBC 13.6 H D, RBC 4.82, Hgb 13.0 L, Hct 41.2 L, MCV 85.4, MCH 27.0, MCHC 31.6 L, RDW 13.1, Plt Count 283, MPV 8.9, Neut % (Auto) 56.8, Lymph % (Auto) 33.3, [place] % (Auto) 5.8, Eos % (Auto) 3.6, Baso % (Auto) 0.5, Neut # (Auto) 7.7, Lymph # (Auto) 4.6 H, [place] # (Auto) 0.8, Eos # (Auto) 0.5 H, Baso # (Auto) 0.1 I & O for Last 24 hours: Intake & Output 10/30/20 10/31/20 11/01/20 11/02/20 11:59 11:59 11:59 11:59 Intake Total 500 / 500 2546 / 2546 2958 / 2958 Output Total 0 / 0 Balance 500 / 500 2546 / 2546 2958 / 2958 Weight 130 lb 136 lb 6 oz 136 lb 5 oz Microbiology Reports for the Last 24 Hours: Microbiology 10/30/20 04:25 Arm,Left - Abscess Gram Stain - Final 10/30/20 04:25 Arm,Left - Abscess Wound Culture - Preliminary Gram Positive Cocci Gram Positive Cocci#2 10/30/20 11:27 Arm,Left - Abscess Gram Stain - Final 10/30/20 11:27 Arm,Left - Abscess Abscess Culture - Preliminary 10/30/20 04:25 Blood Blood Culture - Preliminary NO GROWTH AFTER 48 HOURS 10/30/20 04:25 Blood Blood Culture - Preliminary NO GROWTH AFTER 48 HOURS - *Routine Skin Exam Comments: Wound appears clean. Some regional erythema. No evidence of any progression.
[2020-11-01 16:00] VITALS: BP 132/83; PULSE 77; RESP 16; TEMP 36.9; O2SAT 97
[2020-11-01 16:16] LABS: Vancomycin,Trough 14.3 ug/mL (5.0-10.0)
--- NOTE | 2020-11-01 17:10 | PC.NURSE ---
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 I TOLD HIM VANC TROUGH WAS 14.3 AND HE STATED VANC WAS GOOD TO BE ADMINISTERED.
--- NOTE | 2020-11-01 18:14 | PC.NURSE ---
A&OX4. PT HAS TOLERATED RA WELL THROUGHOUT SHIFT. RESPIRATIONS REGULAR AND UNLABORED. LUNG SOUNDS BILATERALLY CLEAR. NO COUGH NOTED. NO EDEMA NOTED. ACTIVE BOWEL SOUNDS HEARD IN ALL 4 QUADRANTS. SOFT AND NONTENDER ABDOMEN. PT VOIDS PER BATHROOM INDEPENDENTLY. NO BM REPORTED. +2 PULSES NOTED THROUGHOUT. PT HAS REPORTED PAIN TWICE THIS SHIFT AND RECEIVED PAIN MEDS PER NOV. ON REASSESSMENT, PT WAS RESTING W EYES CLOSED. DRESSING NOTED TO L ARM. PT RECEIVED DRESSING CHANGE AROUND 10:30 AND TOLERATED OK. WET TO DRY DRESSING W 4X4S AND MILTON WRAP IN PLACE. PT RECEIVED A SHOWER THIS SHIFT. PT RECEIVED VANC TWICE AND TOLERATED WELL. NS INFUSING AT 100ML/HR. BED IN LOWEST POSITION. CALL LIGHT WITHIN REACH. VSS. WILL CONTINUE TO MONITOR.
[2020-11-01 20:00] VITALS: BP 148/64; PULSE 72; RESP 16; TEMP 36.7; O2SAT 99
[2020-11-02 04:00] VITALS: BP 119/60; PULSE 68; RESP 20; TEMP 36.3; O2SAT 100
[2020-11-02 05:00] VITALS: BMI 19.0
--- NOTE | 2020-11-02 06:39 | PC.NURSE ---
no acute changes since prior assessment, pt has rested well t/o shift, pt has complained of pain twice this shift and was treated per MAR, dressing change done and small amount of serous drainage noted, tolerated dressing change well, lungs CTA, no complaints of SOA or CP, has remained afebrile, ambulating independently to bathroom
[2020-11-02 08:00] VITALS: BP 125/62; PULSE 71; RESP 16; TEMP 36.7; O2SAT 98
--- NOTE | 2020-11-02 08:38 | HMH.GSPN ---
Subjective Patient reports: no new complaints Progress Note: A&P (1) Abscess of skin or subcutaneous tissue Status: Acute (2) IVDU (intravenous drug user) Status: Acute (3) Elevated liver enzymes Status: Acute (4) SIRS (systemic inflammatory response syndrome) Status: Acute Exam Vital signs and Labs for Last 24 Hours: Temp Pulse Resp BP Pulse Ox 97.3 F L 68 20 119/60 100 11/02/20 04:00 11/02/20 04:00 11/02/20 04:00 11/02/20 04:00 11/02/20 04:00 Laboratory Results - last 24 hr 11/01/20 10:35: WBC 13.6 H D, RBC 4.82, Hgb 13.0 L, Hct 41.2 L, MCV 85.4, MCH 27.0, MCHC 31.6 L, RDW 13.1, Plt Count 283, MPV 8.9, Neut % (Auto) 56.8, Lymph % (Auto) 33.3, Wilkinson % (Auto) 5.8, Eos % (Auto) 3.6, Baso % (Auto) 0.5, Neut # (Auto) 7.7, Lymph # (Auto) 4.6 H, Wilkinson # (Auto) 0.8, Eos # (Auto) 0.5 H, Baso # (Auto) 0.1 11/01/20 15:55: Vancomycin Trough 14.3 H I & O for Last 24 hours: Intake & Output 10/30/20 10/31/20 11/01/20 11/02/20 11:59 11:59 11:59 11:59 Intake Total 500 / 500 2546 / 2546 2958 / 2958 2648 / 2648 Output Total 0 / 0 0 / 0 Balance 500 / 500 2546 / 2546 2958 / 2958 2648 / 2648 Weight 130 lb 136 lb 6 oz 136 lb 5 oz 136 lb Microbiology Reports for the Last 24 Hours: Microbiology 10/30/20 04:25 Arm,Left - Abscess Gram Stain - Final 10/30/20 04:25 Arm,Left - Abscess Wound Culture - Preliminary Staphylococcus epidermidis Streptococcus anginosus 10/30/20 11:27 Arm,Left - Abscess Gram Stain - Final 10/30/20 11:27 Arm,Left - Abscess Abscess Culture - Preliminary 10/30/20 04:25 Blood Blood Culture - Preliminary NO GROWTH AFTER 48 HOURS 10/30/20 04:25 Blood Blood Culture - Preliminary NO GROWTH AFTER 48 HOURS - *Routine Skin Exam Comments: Decreased edema and cellulitis. Less drainage. Wound clean
--- NOTE | 2020-11-02 11:40 | HMH.PHACONS ---
- Pharmacy Consult Date: 11/02/20 Time: 11:40 Referring provider: DR. COOK Reason for Consult:: VANCOMYCIN TROUGH LEVEL Allergies and ADEs:: Allergies Allergy/AdvReac Type Severity Reaction Status Date / Time ibuprofen [IBUPROFEN] Allergy Severe S-SWELLS-OR Verified 04/19/19 20:56 AL/THROAT shellfish derived Allergy Intermediate Rash Verified 10/30/20 08:13 Home Medications:: Home Medications Medication Instructions Recorded Confirmed Type No Known Home Medications 10/30/20 10/30/20 History Height: 1.8 m Weight: 61.689 kg Laboratory Results:: Laboratory Results - last 24 hr 11/01/20 15:55: Vancomycin Trough 14.3 H Medical History: Reports:: Asthma Denies:: Cancer, Diabetes Mellitus Type 1, Diabetes Mellitus Type 2, Gastrointestinal Bleed, MRSA Assessment and Plan (1) Abscess of skin or subcutaneous tissue Status: Acute Qualifiers: Site of cutaneous abscess: extremity Site of cutaneous abscess of extremity: upper extremity Laterality: left Qualified Code(s): L02.414 - Cutaneous abscess of left upper limb Category: Medical Code(s): L02.91 - Cutaneous abscess, unspecified (2) IVDU (intravenous drug user) Status: Acute Category: Social Hx Code(s): F19.90 - Other psychoactive substance use, unspecified, uncomplicated (3) Elevated liver enzymes Status: Acute Category: Medical Code(s): R74.8 - Abnormal levels of other serum enzymes (4) SIRS (systemic inflammatory response syndrome) Status: Acute Category: Medical Code(s): R65.10 - Systemic inflammatory response syndrome (SIRS) of non-infectious origin without acute organ dysfunction - Assessment and plan all Dx Assessment and Plan for all problems:: VANCOMYCIN TROUGH LEVEL WAS 14.3 MCG/ML ON 11/01/20. RECOMMEND CONTINUING WITH CURRENT DOSE OF VANCOMYCIN 1250 MG Q8H.
--- NOTE | 2020-11-02 13:15 | HMH.ACPN2 ---
Internal Medicine - PN: Subj *Date: 11/02/20 *Time: 13:15 Interval history: He is clinically quite stable. It is likely that he will need to be continued on antibiotics even as an outpatient. This is problematic, to say the least, with regards to his history of IV drug use. He has no new complaints. He is obviously feeling better. Exam Vital signs and Labs for Last 24 Hours: Temp Pulse Resp BP Pulse Ox 98.0 F 71 16 125/62 98 11/02/20 08:00 11/02/20 08:00 11/02/20 08:00 11/02/20 08:00 11/02/20 08:00 Laboratory Results - last 24 hr 11/01/20 15:55: Vancomycin Trough 14.3 H I & O for Last 24 hours: Intake & Output 10/31/20 11/01/20 11/02/20 11/03/20 11:59 11:59 11:59 11:59 Intake Total 2546 / 2546 2958 / 2958 3488 / 3488 Output Total 0 / 0 0 / 0 Balance 2546 / 2546 2958 / 2958 3488 / 3488 Weight 136 lb 6 oz 136 lb 5 oz 136 lb Microbiology Reports for the Last 24 Hours: Microbiology 10/30/20 04:25 Arm,Left - Abscess Gram Stain - Final 10/30/20 04:25 Arm,Left - Abscess Wound Culture - Preliminary Staphylococcus epidermidis Streptococcus anginosus 10/30/20 11:27 Arm,Left - Abscess Gram Stain - Final 10/30/20 11:27 Arm,Left - Abscess Abscess Culture - Preliminary - Constitutional no acute distress - *Routine HEENT Exam Head: Present: normocephalic Eye: Present: PERRL ENT: Present: mucous membranes moist - *Routine Respiratory Exam Present: CTA bilaterally - *Routine Cardiovascular Exam Present: RRR - *Routine Abdominal Exam Present: soft. Absent: tenderness - *Routine Extremities Exam Absent: edema (Full range of motion of left hand. Good capillary refill.) - *Routine Neurological Exam Present: alert, oriented X3 Assessment and Plan (1) Abscess of skin or subcutaneous tissue Status: Acute Qualifiers: Site of cutaneous abscess: extremity Site of cutaneous abscess of extremity: upper extremity Laterality: left Qualified Code(s): L02.414 - Cutaneous abscess of left upper limb Category: Medical Code(s): L02.91 - Cutaneous abscess, unspecified (2) IVDU (intravenous drug user) Status: Acute Category: Social Hx Code(s): F19.90 - Other psychoactive substance use, unspecified, uncomplicated (3) Elevated liver enzymes Status: Acute Category: Medical Code(s): R74.8 - Abnormal levels of other serum enzymes (4) SIRS (systemic inflammatory response syndrome) Status: Acute Category: Medical Code(s): R65.10 - Systemic inflammatory response syndrome (SIRS) of non-infectious origin without acute organ dysfunction - Assessment and plan all Dx Assessment and Plan for all problems:: Continue present regimen. Disposition will be further explored tomorrow.
[2020-11-02 15:29] VITALS: BP 136/85; PULSE 95; RESP 16; TEMP 36.8; O2SAT 96
--- NOTE | 2020-11-02 15:36 | PC.NURSE ---
A&OX4. PT HAS TOLERATED RA WELL THROUGHOUT SHIFT. RESPIRATIONS REGULAR AND UNLABORED. LUNG SOUNDS BILATERALLY CLEAR. NO COUGH NOTED. NO EDEMA NOTED. ACTIVE BOWEL SOUNDS HEARD IN ALL 4 QUADRANTS. SOFT AND NONTENDER ABDOMEN. PT VOIDS PER BATHROOM INDEPENDENTLY. NO BM REPORTED. +2 PULSES NOTED THROUGHOUT. PT HAS REPORTED PAIN TWICE THIS SHIFT AND RECEIVED PAIN MEDS PER NOV. ON REASSESSMENT, PT WAS RESTING W EYES CLOSED. DRESSING NOTED TO L ARM. PT RECEIVED DRESSING CHANGE THIS AM AND TOLERATED WELL. WET TO DRY DRESSING W 4X4S AND MILTON WRAP IN PLACE. PT RECEIVED VANC TWICE AND TOLERATED WELL. NS INFUSING AT 100ML/HR. PT SEEMS TO BE FEELING MUCH BETTER. PT HAD ONE VISITOR TODAY. DOOR WAS LEFT OPEN WHILE VISITOR WAS HERE. BED IN LOWEST POSITION. CALL LIGHT WITHIN REACH. VSS. WILL CONTINUE TO MONITOR.
[2020-11-02 20:00] VITALS: BP 136/56; PULSE 64; RESP 17; TEMP 36.6; O2SAT 100
[2020-11-03 03:51] VITALS: BP 125/60; PULSE 61; RESP 16; TEMP 36.7; O2SAT 98
--- NOTE | 2020-11-03 04:53 | PC.NURSE ---
shift summary pts lung sounds are clear with sats maintained 95% or above on room air with a rate ranging from 16-18. pts pain has decreased and was able to tolerate dressing change without pain meds. pt is alert and oriented X4. pt is independent in going to the bathroom.
[2020-11-03 05:00] VITALS: BMI 19.0
[2020-11-03 07:33] VITALS: BP 116/62; PULSE 71; RESP 16; TEMP 36.4; O2SAT 100
--- NOTE | 2020-11-03 07:53 | HMH.GSPN ---
Subjective Narrative: Patient sleeping. Progress Note: A&P (1) Abscess of skin or subcutaneous tissue Status: Acute (2) IVDU (intravenous drug user) Status: Acute (3) Elevated liver enzymes Status: Acute (4) SIRS (systemic inflammatory response syndrome) Status: Acute Assessment and Plan for All Diagnoses:: Cultures reviewed. Should be appropriate for discharge with outpatient once daily dressing changes and oral Cephalexin and Bactrim. Exam Vital signs and Labs for Last 24 Hours: Temp Pulse Resp BP Pulse Ox 97.6 F 71 16 116/62 100 11/03/20 07:33 11/03/20 07:33 11/03/20 07:33 11/03/20 07:33 11/03/20 07:33 I & O for Last 24 hours: Intake & Output 10/31/20 11/01/20 11/02/20 11/03/20 11:59 11:59 11:59 11:59 Intake Total 2546 / 2546 2958 / 2958 3488 / 3488 4134 / 4134 Output Total 0 / 0 0 / 0 Balance 2546 / 2546 2958 / 2958 3488 / 3488 4134 / 4134 Weight 136 lb 6 oz 136 lb 5 oz 136 lb 136 lb 0.015 oz Microbiology Reports for the Last 24 Hours: Microbiology 10/30/20 04:25 Arm,Left - Abscess Gram Stain - Final 10/30/20 04:25 Arm,Left - Abscess Wound Culture - Preliminary Staphylococcus epidermidis Streptococcus anginosus 10/30/20 11:27 Arm,Left - Abscess Gram Stain - Final 10/30/20 11:27 Arm,Left - Abscess Abscess Culture - Preliminary
--- NOTE | 2020-11-03 08:41 | P.PN_ITS ---
Internal Medicine - PN: Subj *Date: 11/03/20 *Time: 08:41 Interval history: Patient awakened for assessment. She does not know if his arm is better. He is eating and drinking okay. He is voiding QS. He denies chest pain and shortness of breath. He ambulates in the room without difficulty. Exam Vital signs and Labs for Last 24 Hours: Temp Pulse Resp BP Pulse Ox 97.6 F 71 16 116/62 100 11/03/20 07:33 11/03/20 07:33 11/03/20 07:33 11/03/20 07:33 11/03/20 07:33 I & O for Last 24 hours: Intake & Output 10/31/20 11/01/20 11/02/20 11/03/20 11:59 11:59 11:59 11:59 Intake Total 2546 / 2546 2958 / 2958 3488 / 3488 4134 / 4134 Output Total 0 / 0 0 / 0 Balance 2546 / 2546 2958 / 2958 3488 / 3488 4134 / 4134 Weight 136 lb 6 oz 136 lb 5 oz 136 lb 136 lb 0.015 oz Microbiology Reports for the Last 24 Hours: Microbiology 10/30/20 04:25 Arm,Left - Abscess Gram Stain - Final 10/30/20 04:25 Arm,Left - Abscess Wound Culture - Preliminary Staphylococcus epidermidis Streptococcus anginosus 10/30/20 11:27 Arm,Left - Abscess Gram Stain - Final 10/30/20 11:27 Arm,Left - Abscess Abscess Culture - Preliminary - Constitutional no acute distress - *Routine Respiratory Exam Present: CTA bilaterally (Anteriorly and posteriorly) - *Routine Cardiovascular Exam Present: RRR - *Routine Abdominal Exam Present: soft, normoactive bowel sounds. Absent: tenderness - *Routine Extremities Exam Present: edema (Left arm. Dressing over wound is clean and dry.) - *Routine Neurological Exam Present: alert, oriented X3 Assessment and Plan (1) Abscess of skin or subcutaneous tissue Status: Acute Qualifiers: Site of cutaneous abscess: extremity Site of cutaneous abscess of extremity: upper extremity Laterality: left Qualified Code(s): L02.414 - Cutaneous abscess of left upper limb Category: Medical Code(s): L02.91 - Cutaneous abscess, unspecified (2) IVDU (intravenous drug user) Status: Acute Category: Social Hx Code(s): F19.90 - Other psychoactive substance use, unspecified, uncomplicated (3) Elevated liver enzymes Status: Acute Category: Medical Code(s): R74.8 - Abnormal levels of other serum enzymes (4) SIRS (systemic inflammatory response syndrome) Status: Acute Category: Medical Code(s): R65.10 - Systemic inflammatory response syndrome (SIRS) of non-infectious origin without acute organ dysfunction - Assessment and plan all Dx Assessment and Plan for all problems:: Wound culture reveals Staphylococcus epidermidis and Streptococcus anginnosis. Patient is stable for discharge. He has been seen by surgeon. He will require daily dressing changes which can be done as an outpatient if [facility]. Will be placed on 2 antibiotics to cover both organisms.
--- NOTE | 2020-11-03 09:37 | SW/DCPLANNER ---
I have spoke with this patient regarding discharge plans: patient stated that he lives at home with his mother and understands he needs to return daily for dressing changes. I have spoke with this patient regarding transportation: patient does not have transportation home. I have explained to patient that I can set him up with [facility] [employer] at $1/mile and patient stated that he prefer to walk and not wait for [employer]. I offered to contact family for this patient and he denied wanting to walk home. Patient stated that he will return daily for dressing changes. This patient will discharge home today.
--- NOTE | 2020-11-03 10:25 | PC.NURSE ---
PT REFUSED TO WAIT FOR TRANSPORTATION AND STATED THAT HE WAS UNABLE TO CONTACT ANY FAMILY MEMBERS,
--- NOTE | 2020-11-03 14:41 | HMH.DCSUM ---
General - General Admission date:: 10/30/20 Discharge date: 11/03/20 HPI HPI: Mr. Monterroso was a 30yo male who presented to the ER with an abscess in the left antecubital fossa after shooting heroin there four days prior. His white blood cell count was elevated at 22.4. His liver function tests were also elevated. His C-reactive protein was elevated as well. He had negative Covid antibodies. A culture was taken of the left arm as the area was open and draining. He was admitted and surgery was consulted. He was started on IV vancomycin. Hospital Course Hospital Course: After being seen by the surgeon, the patient elected to proceed with surgical incision and drainage and possible debridement of left antecubital fossa abscess. He underwent the procedure without complications and the following day had no complaints other than discomfort in his hand. His white blood cell count remained elevated and wound cultures were pending. He was continued on IV antibiotics. By the morning of 11/01/2020, he continued with left arm discomfort after surgical dressing change. Preliminary wound culture grew gram positive cocci. His white blood cell count had improved to 13.6. By 11/02/2020, he was clinically quite stable and feeling better. His wound cultures grew Staph epidermis and Staph anginosus species. It was felt that he would need to be continued on antibiotics on an outpatient basis which would be problematic given his history of IV drug abuse, however, surgery felt he was appropriate for discharge with outpatient once daily dressing changes and oral Keflex and Bactrim. Thus, he was discharged home on 11/03/2020 with plan for follow up with surgeon in two days. Objective Vital signs: Temp Pulse Resp BP Pulse Ox 97.6 F 71 16 116/62 100 11/03/20 07:33 11/03/20 07:33 11/03/20 07:33 11/03/20 07:33 11/03/20 07:33 Results Labs on day of discharge: Preliminary micro results at discharge 10/30/20 11:27 Abscess Culture - Preliminary Arm,Left - Abscess 10/30/20 04:25 Blood Culture - Preliminary Blood NO GROWTH AFTER 48 HOURS 10/30/20 04:25 Blood Culture - Preliminary Blood NO GROWTH AFTER 48 HOURS DS: Diagnosis - Discharge Diagnosis (1) Abscess of skin or subcutaneous tissue Status: Acute (2) IVDU (intravenous drug user) Status: Acute (3) Elevated liver enzymes Status: Acute (4) SIRS (systemic inflammatory response syndrome) Status: Acute Discharge Plan - Patient Discharge Instructions ACTIVITY: Limited activity DIET: advance to your usual diet Patient Instructions: DI for Skin Abscess - Follow up Plan Follow up with: Carlitos Edgar MD [Staff Physician] - 11/05/20 1:15 pm Disposition: Home, Self-[facility] Medications: Home Medications Medication Instructions Recorded Confirmed Type Cefdinir [Omnicef 300mg Capsule] 300 mg PO BID #20 cap 11/03/20 Rx Sulfamethoxazole/Trimethoprim 1 each PO BID #20 tab 11/03/20 Rx [Bactrim DS tablet] Tramadol HCl [Tramadol 50mg 50 mg PO TID PRN #30 tab 11/03/20 Rx Tab] Prescriptions/Medication Reconciliation: New Tramadol HCl [Tramadol 50mg Tab] 50 mg PO TID PRN #30 tab PRN Reason: Moderate Pain Sulfamethoxazole/Trimethoprim [Bactrim DS tablet] 1 each PO BID #20 tab Cefdinir [Omnicef 300mg Capsule] 300 mg PO BID #20 cap - Problem Reconciliation Problems Reviewed?: Yes
== END 2020-11-03 09:38 | disposition home or self-care (01) | DRG 603 ==
LOC: ER 06:43 → 2ND 07:12
PROVIDERS: Surgery; Admitting Provider Family Medicine; Emergency Provider Emergency Medicine; Visit Provider Family Medicine
PROC: 0X9C0ZX Drainage of Left Elbow Region, Open Approach, Diagnostic (ICD-10-PCS; CPT 10061; principal; 2020-10-30 10:30)
DX: L02.414 Cutaneous abscess of left upper limb (principal); R65.10 Systemic inflammatory response syndrome (SIRS) of non-infectious origin without acute organ dysfunction; F11.20 Opioid dependence, uncomplicated; Z72.0 Tobacco use; Z88.8 Allergy status to other drugs, medicaments and biological substances; Z79.899 Other long term (current) drug therapy; B95.4 Other streptococcus as the cause of diseases classified elsewhere
CPT/HCPCS: 10061; 36415; 71046; 80048; 80053; 80202; 83605; 84145; 85007; 85025; 85651; 86140; 86328; 87040; 87070; 87075; 87077; 87186; 87205; 96365; 96367; 96375; 99284; J2405; J3370

== ENCOUNTER 2020-11-15 23:37 | Inpatient (IN) | payer MEDICARE, SELFPAY ==
[2020-11-15 23:38] VITALS: BP 130/73; PULSE 97; RESP 16; TEMP 37.2; O2SAT 98; BMI 19.8
[2020-11-16] VITALS (24 sets, daily range): BP systolic 93–151; BP diastolic 47–73; PULSE 73–95; RESP 12–19; TEMP 36.4–37.2; O2SAT 95–99; BMI 18.3
[2020-11-16 00:44] LABS: Basophils % 0.2 % (0.1-2.0); Eosinophils # 0.4 K/mm3 (0.0-0.4); Hematocrit 44.2 % (42.0-52.0); Lymphocytes # 3.7 K/mm3 (0.7-4.5); Lymphocytes % 16.8 % (10-50); Mean Corpuscular HGB Conc 31.7 g/dL (31.8-35.4); Mean Corpuscular Hemoglobin 26.8 pg (27.0-31.2); Mean Corpuscular Volume 84.5 fl (80-94); Mean Platelet Volume 9.8 fl (7.4-10.4); Monocytes # 1.3 K/mm3 (0.1-1.0); Neutrophils # 16.5 K/mm3 (1.8-7.8); Neutrophils % 75.1 % (37.0-80.0); Platelet Count 270 K/mm3 (142-424); Red Blood Count 5.23 M/mm3 (4.60-6.20)
--- NOTE | 2020-11-16 00:45 | HMH.EDSKAF ---
ED Disposition Clinical Impression: SIRS (systemic inflammatory response syndrome), IVDU (intravenous drug user), Elevated liver enzymes Abscess of skin or subcutaneous tissue Qualifiers: Site of cutaneous abscess: extremity Site of cutaneous abscess of extremity: upper extremity Laterality: right Qualified Code(s): L02.413 - Cutaneous abscess of right upper limb Disposition: Admitted as Observation Condition on Discharge: Good Instructions: DI for Skin Abscess Referrals: PCP,No [Primary Care Provider] - - Critical Care Critical Care Time: No Attestation: On 11/15/20, the high probability of a clinically significant, sudden or life threatening deterioration of the following system(s) required my full and direct attention, intervention and personal management. The time I documented below is in addition to time spent performing reported procedures but includes the following listed in this critical care notation. Medical Decision Making - Medical Records Medical records reviewed: Yes: I reviewed the patient's medical records. - Darryl Inquiry Pt receiving controlled substance: No Vital Signs: 11/15/20 23:38 Temperature 98.9 F Temperature Source Oral Pulse Rate [Right] 97 H Respiratory Rate 16 Blood Pressure [Right Arm] 130/73 Blood Pressure Mean [Right Arm] 92 02 Sat by Pulse Oximetry 98 Oxygen Delivery Method Room Air - Lab Data Lab results reviewed: Yes: I reviewed the patient's lab results. Lab Results 11/16/20 00:05: WBC 22.0 H*, RBC 5.23, Hgb 14.0 L, Hct 44.2, MCV 84.5, MCH 26.8 L, MCHC 31.7 L, RDW 13.0, Plt Count 270, MPV 9.8, Neut % (Auto) 75.1, Lymph % (Auto) 16.8, [place] % (Auto) 6.0, Eos % (Auto) 2.0, Baso % (Auto) 0.2, Neut # (Auto) 16.5 H, Lymph # (Auto) 3.7, [place] # (Auto) 1.3 H, Eos # (Auto) 0.4, Baso # (Auto) 0.0, Total Counted 100, Neutrophils % (Manual) 73, Lymphocytes % (Manual) 17, Monocytes % (Manual) 7, Eosinophils % (Manual) 3, Platelet Estimate Normal, Hypochromasia 1+, ESR 7 11/16/20 00:05: Sodium 133 L, Potassium 3.7, Chloride 98, Carbon Dioxide 28, Anion Gap 10.7, BUN 12, Creatinine 0.80, Estimated Creat Clear 114, Estimated GFR 114, Est GFR ( Amer) 138, Glucose 140 H, Calcium 10.0, Total Bilirubin 1.0, AST 76 H, ALT 192 H, Alkaline Phosphatase 88, C-Reactive Protein 45.2 H, Total Protein 8.2, Albumin 4.3, Globulin 3.9 H, Albumin/Globulin Ratio 1.1 11/16/20 00:05: Lactate 2.0 Result diagrams: 11/16/20 00:05 11/16/20 00:05 Orders (Tests/Meds): ED MEDICATIONS Generic Name Dose Route Start Last Admin Trade Name Freq PRN Reason Stop Dose Admin Sodium Chloride 1,000 mls @ 999 mls/hr 11/16/20 00:45 11/16/20 00:46 Sod Chlor 0.9% 1000ml Bag IV 11/16/20 01:45 999 mls/hr .Q1H1M YOSSI Administration Vancomycin HCl 1,250 mg/ 250 mls @ 125 mls/hr 11/16/20 02:05 Sodium Chloride IV 11/16/20 04:04 ONCE ONE Protocol Miscellaneous 1 each 11/16/20 02:15 Vancomycin Consult Request * 12/16/20 02:14 CONSULT PHARMACY YOSSI ORDERS Category Date Time Status Covid-19 Nasal PCR ([facility]) Routine Lab 11/16/20 01:45 Received Procalcitonin Stat Lab 11/16/20 00:05 Received Blood Culture Stat Micro 11/16/20 00:05 Received - Physician Consults Physician Consulted: gerard Reason -: Admission Medical Decision Narrative: will be admitted for ivabx and surg consult Skin/Abscess/FB HPI - General Chief complaint: Skin/Abscess/Foreign Body Stated complaint: Abcess on Right Arm Time Seen by Provider: 11/16/20 00:00 Mode of Arrival: Ambulatory Source of Information: Patient, Medical Record Limitations: No Limitations Description of Symptoms (Recalled from ER Triage Doc. by RN): pt c/o abcess on rt forearm that has been there for four days - History of Present Illness HPI narrative: pt with ivdu and has progressive swelling abscess rt forearm - recent admit for same issues lt axilla - did not get op abx or f/u with surg MD complaint: abscess/
[2020-11-16 00:46] LABS: Chloride 98 mmol/L (98-107); Sodium 133 mmol/L (136-145)
[2020-11-16 00:48] LABS: Alanine Aminotransferase 192 U/L (12-78); Aspartate Amino Transferase 76 U/L (17-59); Blood Urea Nitrogen 12 mg/dl (9-20); Creatinine Clearance Estimated 114 mL/min (50-200); Estimated Glomerular Filt Rate 114 ml/min (>60); GFR (African American) 138 ML/MIN (>60); Potassium 3.7 mmoL/L (3.5-5.1)
[2020-11-16 00:49] LABS: Albumin Level 4.3 g/dl (3.5-5.0); Albumin/Globulin Ratio 1.1 (1.1-1.8); Alkaline Phosphatase 88 U/L (38-126); Anion Gap 10.7 mEq/L (5-15); Carbon Dioxide 28 mmol/L (22.0-30.0); Globulin 3.9 g/dL (1.3-3.2); Glucose 140 mg/dl (74-100); Total Protein,Serum 8.2 g/dl (6.3-8.2)
[2020-11-16 00:50] LABS: MANUAL DIFFERENTIAL MANUAL DIFFERENTIAL (MANUAL DIFF)
[2020-11-16 00:55] LABS: C-Reactive Protein 45.2 mg/L (0-4)
[2020-11-16 01:03] LABS: Eosinophils % 3 % (0-3); Lymphocytes % 17 % (10-50); Monocytes % 7 % (2-9); Neutrophils % 73 % (42-76); Total Cells Counted 100
[2020-11-16 01:04] LABS: Hypochromasia 1+; Platelet Estimate Normal
[2020-11-16 01:10] LABS: Erythrocyte Sedimentation Rate 7 mm/hr (0-15)
[2020-11-16 02:18] LABS: Procalcitonin 0.123 ng/mL (0.0-2.0)
--- NOTE | 2020-11-16 04:07 | PC.NURSE ---
patient up to floor via wheelchair.
--- NOTE | 2020-11-16 05:13 | PC.WOUNDNOTE ---
Wound Location: rt forearm Length: 5 cm Width: 4 cm Inflammation/swelling Y/N: yes Pain and/or tenderness Y/N: yes Exudate: Purulent Color: Cloudy/milky [place] Red Yellow Consistency: Thick Amount: Scant Odor Y/N:no
--- NOTE | 2020-11-16 06:43 | PC.NURSE ---
Pt called out stating my arm busted . Abscess on RFA appeared to have opened and red/white/yellow drainage was draining. Drainage had an extremely fould odor. This nurse cleaned off area w/ sterile water. Non adherent pad, ABD pad, kerlix applied to RFA.
--- NOTE | 2020-11-16 08:30 | HMH.PHACONS ---
- Pharmacy Consult Date: 11/16/20 Time: 08:30 Referring provider: DR. RANDLE Reason for Consult:: VANCOMYCIN DOSING Allergies and ADEs:: Allergies Allergy/AdvReac Type Severity Reaction Status Date / Time ibuprofen [IBUPROFEN] Allergy Severe S-SWELLS-OR Verified 04/19/19 20:56 AL/THROAT shellfish derived Allergy Intermediate Rash Verified 10/30/20 08:13 Home Medications:: Home Medications Medication Instructions Recorded Confirmed Type No Known Home Medications 11/16/20 11/16/20 History Height: 1.8 m Weight: 59.874 kg Laboratory Results:: Laboratory Results - last 24 hr 11/16/20 00:05: WBC 22.0 H*, RBC 5.23, Hgb 14.0 L, Hct 44.2, MCV 84.5, MCH 26.8 L, MCHC 31.7 L, RDW 13.0, Plt Count 270, MPV 9.8, Neut % (Auto) 75.1, Lymph % (Auto) 16.8, [place] % (Auto) 6.0, Eos % (Auto) 2.0, Baso % (Auto) 0.2, Neut # (Auto) 16.5 H, Lymph # (Auto) 3.7, [place] # (Auto) 1.3 H, Eos # (Auto) 0.4, Baso # (Auto) 0.0, Total Counted 100, Neutrophils % (Manual) 73, Lymphocytes % (Manual) 17, Monocytes % (Manual) 7, Eosinophils % (Manual) 3, Platelet Estimate Normal, Hypochromasia 1+, ESR 7 11/16/20 00:05: Sodium 133 L, Potassium 3.7, Chloride 98, Carbon Dioxide 28, Anion Gap 10.7, BUN 12, Creatinine 0.80, Estimated Creat Clear 114, Estimated GFR 114, Est GFR ( Amer) 138, Glucose 140 H, Calcium 10.0, Total Bilirubin 1.0, AST 76 H, ALT 192 H, Alkaline Phosphatase 88, C-Reactive Protein 45.2 H, Total Protein 8.2, Albumin 4.3, Globulin 3.9 H, Albumin/Globulin Ratio 1.1 11/16/20 00:05: Lactate 2.0 11/16/20 00:05: Procalcitonin 0.123 Medical History: Reports:: Asthma Denies:: Cancer, Diabetes Mellitus Type 1, Diabetes Mellitus Type 2, Gastrointestinal Bleed, MRSA Assessment and Plan - Assessment and plan all Dx Assessment and Plan for all problems:: BASED ON PATIENT FACTORS, RECOMMEND VANCOMYCIN 1250 MG IV ONCE, FOLLOWED BY VANCOMYCIN 1 GM IV Q8H. WILL OBTAIN VANCOMYCIN TROUGH LEVEL PRIOR TO 4TH DOSE. PHARMACY WILL FOLLOW DAILY AND ADJUST APPROPRIATE.
--- NOTE | 2020-11-16 08:34 | HMH.HP ---
*Admission Date: 11/15/20 *Chief complaint: Abscess *History of present illness: Enirque is a 30-year-old white male with a history of IV drug abuse who was recently hospitalized here from 10/30/2020 through 11/02/2020 with a left antecubital abscess. This was I&Ded by surgery and cultures grew out staph epidermidis and staph Arginosus. He was discharged home on oral antibiotics but did not fill his prescriptions. He returned to the ER last night with a new abscess on his right forearm and has been admitted for surgical consultation. [facility] History Medical History: Reports:: Asthma Denies:: Cancer, Diabetes Mellitus Type 1, Diabetes Mellitus Type 2, Gastrointestinal Bleed, MRSA *Have you ever received a pneumonia vaccine?: No *Have you received a flu vaccine this season?: No Other Surgeries: Yes: No Previous Surgery, Other Amputation: No Fractures: No - *Social History Last grade of school completed: High school graduate Smoking Status: Current every day smoker Tobacco Type: cigarettes # Packs/Day (cigarettes): 1 Alcohol Intake: never Alcohol Intake Frequency:: other Substance Use Type: marijuana, IV drugs (Heroin), methamphetamine Last Used Substance: days (ago) *Occupational Status:: employed Housing: apartment Household Members: family *Travel in the last 8 weeks: None Family Hx:: Cancer, Diabetes, Substance abuse, Alcoholism Review of Systems - Constitutional Reports weight loss, Denies fever(s), Denies headache(s) - Eyes Denies change in vision - ENT Reports nasal congestion, Denies bleeding gums, Denies dizziness - *Cardiovascular Denies chest pain, Denies shortness of breath, Denies irregular heart rhythm, Denies leg swelling - *Respiratory Denies chest congestion, Denies cough - *Gastrointestinal Denies abdominal pain, Denies vomiting blood, Denies nausea - *Genitourinary Denies difficulty urinating - *Musculoskeletal Denies joint pain, Denies muscle weakness - Integumentary/Breasts Denies change in skin color - *Neurologic Denies localized weakness, Denies headache(s), Denies tingling/numbness/burning sensations - Psychiatric Reports abnormal sleep pattern, Denies depression - Endocrine Denies excessive sweating - Hematologic/Lymphatic Denies easy bruising - Allergic/Immunologic Denies wheezing Meds Home Medications Medication Instructions Recorded Confirmed Type No Known Home Medications 11/16/20 11/16/20 History Allergies Allergy/AdvReac Type Severity Reaction Status Date / Time ibuprofen [IBUPROFEN] Allergy Severe S-SWELLS-OR Verified 04/19/19 20:56 AL/THROAT shellfish derived Allergy Intermediate Rash Verified 10/30/20 08:13 Exam Vital signs and Labs for Last 24 Hours: Temp Pulse Resp BP Pulse Ox 98.5 F 73 18 140/73 98 11/16/20 08:00 11/16/20 08:09 11/16/20 08:09 11/16/20 08:00 11/16/20 08:09 Laboratory Results - last 24 hr 11/16/20 00:05: WBC 22.0 H*, RBC 5.23, Hgb 14.0 L, Hct 44.2, MCV 84.5, MCH 26.8 L, MCHC 31.7 L, RDW 13.0, Plt Count 270, MPV 9.8, Neut % (Auto) 75.1, Lymph % (Auto) 16.8, [place] % (Auto) 6.0, Eos % (Auto) 2.0, Baso % (Auto) 0.2, Neut # (Auto) 16.5 H, Lymph # (Auto) 3.7, [place] # (Auto) 1.3 H, Eos # (Auto) 0.4, Baso # (Auto) 0.0, Total Counted 100, Neutrophils % (Manual) 73, Lymphocytes % (Manual) 17, Monocytes % (Manual) 7, Eosinophils % (Manual) 3, Platelet Estimate Normal, Hypochromasia 1+, ESR 7 11/16/20 00:05: Sodium 133 L, Potassium 3.7, Chloride 98, Carbon Dioxide 28, Anion Gap 10.7, BUN 12, Creatinine 0.80, Estimated Creat Clear 114, Estimated GFR 114, Est GFR ( Amer) 138, Glucose 140 H, Calcium 10.0, Total Bilirubin 1.0, AST 76 H, ALT 192 H, Alkaline Phosphatase 88, C-Reactive Protein 45.2 H, Total Protein 8.2, Albumin 4.3, Globulin 3.9 H, Albumin/Globulin Ratio 1.1 11/16/20 00:05: Lactate 2.0 11/16/20 00:05: Procalcitonin 0.123 I & O for Last 24 hours: Intake & Output 11/13/20 11/14/20 11/15/20 11/16/20
--- NOTE | 2020-11-16 11:25 | P.PN_ITS ---
[facility] Anesthesia Checklist - Structural Data Admitted From: Inpatient Planned Operative Procedure/s: i/d r arm Consent for Planned Operative Procedure(s) Verified: Yes - Additional verifications Anesthesia Reactions: No - Airway Assessment C-Spine Mobility Assessed: Yes TMJ Mobility Assessed: Yes Dentition: Poor Dentition - Neurological Assessment Level of Consciousness: Awake, Alert, Appropriate - Anesthesia Plan Anesthesia Risk discussed: Yes Anesthesia Plan: Verified ASA Class: II Anesthesia Type: General [facility] History I have reviewed the patient's past medical history: Yes Medical History: Reports:: Asthma Denies:: Cancer, Diabetes Mellitus Type 1, Diabetes Mellitus Type 2, Gastrointestinal Bleed, MRSA *Have you ever received a pneumonia vaccine?: No *Have you received a flu vaccine this season?: No Anesthesia experience/problems:: none Other Surgeries: Yes: No Previous Surgery, Other Amputation: No Fractures: No - *Social History Last grade of school completed: High school graduate Smoking Status: Current every day smoker Tobacco Type: cigarettes # Packs/Day (cigarettes): 1 Alcohol Intake: never Alcohol Intake Frequency:: other Substance Use Type: marijuana, IV drugs (Heroin), methamphetamine Last Used Substance: days (ago) *Occupational Status:: employed Housing: apartment Household Members: family *Travel in the last 8 weeks: None Family Hx:: Cancer, Diabetes, Substance abuse, Alcoholism
--- NOTE | 2020-11-16 11:28 | HMH.GSCON ---
*Admission Date: 11/15/20 *Reason for consult:: Right upper extremity abscess. *History of present illness: Mr. Monterroso is a 30-year-old male that presents to [facility] with complaints of right upper extremity swelling and pain. Findings consistent with right distal forearm abscess secondary to illicit drug injection. Patient previously seen in October 2020 for similar complaint with the left antecubital abscess requiring I&D. Also secondary to IV drug injection. Patient discharged with oral antibiotic prescription. Patient is noncompliant. Antibiotic prescription was not filled. Patient returns with this visit with similar complaints indicating injection of unknown illicit drug. Review of Systems - Review of Systems Review of systems:: pertinent systems reviewed and negative unless documented below - *Neurologic Denies dizziness, Denies localized weakness, Denies headache(s), Denies tingling/numbness/burning sensations [facility] History Medical History: Reports:: Asthma Denies:: Cancer, Diabetes Mellitus Type 1, Diabetes Mellitus Type 2, Gastrointestinal Bleed, MRSA *Have you ever received a pneumonia vaccine?: No *Have you received a flu vaccine this season?: No Anesthesia experience/problems:: none Other Surgeries: Yes: No Previous Surgery, Other Amputation: No Fractures: No - *Social History Last grade of school completed: High school graduate Smoking Status: Current every day smoker Tobacco Type: cigarettes # Packs/Day (cigarettes): 1 Alcohol Intake: never Alcohol Intake Frequency:: other Substance Use Type: marijuana, IV drugs (Heroin), methamphetamine Last Used Substance: days (ago) *Occupational Status:: employed Housing: apartment Household Members: family *Travel in the last 8 weeks: None Family Hx:: Cancer, Diabetes, Substance abuse, Alcoholism Meds Home Medications Medication Instructions Recorded Confirmed Type No Known Home Medications 11/16/20 11/16/20 History Allergies Allergy/AdvReac Type Severity Reaction Status Date / Time ibuprofen [IBUPROFEN] Allergy Severe S-SWELLS-OR Verified 04/19/19 20:56 AL/THROAT shellfish derived Allergy Intermediate Rash Verified 10/30/20 08:13 Exam Vital signs and Labs for Last 24 Hours: Temp Pulse Resp BP Pulse Ox 98.5 F 73 18 140/73 98 11/16/20 08:00 11/16/20 08:09 11/16/20 08:09 11/16/20 08:00 11/16/20 08:09 Laboratory Results - last 24 hr 11/16/20 00:05: WBC 22.0 H*, RBC 5.23, Hgb 14.0 L, Hct 44.2, MCV 84.5, MCH 26.8 L, MCHC 31.7 L, RDW 13.0, Plt Count 270, MPV 9.8, Neut % (Auto) 75.1, Lymph % (Auto) 16.8, [place] % (Auto) 6.0, Eos % (Auto) 2.0, Baso % (Auto) 0.2, Neut # (Auto) 16.5 H, Lymph # (Auto) 3.7, [place] # (Auto) 1.3 H, Eos # (Auto) 0.4, Baso # (Auto) 0.0, Total Counted 100, Neutrophils % (Manual) 73, Lymphocytes % (Manual) 17, Monocytes % (Manual) 7, Eosinophils % (Manual) 3, Platelet Estimate Normal, Hypochromasia 1+, ESR 7 11/16/20 00:05: Sodium 133 L, Potassium 3.7, Chloride 98, Carbon Dioxide 28, Anion Gap 10.7, BUN 12, Creatinine 0.80, Estimated Creat Clear 114, Estimated GFR 114, Est GFR ( Amer) 138, Glucose 140 H, Calcium 10.0, Total Bilirubin 1.0, AST 76 H, ALT 192 H, Alkaline Phosphatase 88, C-Reactive Protein 45.2 H, Total Protein 8.2, Albumin 4.3, Globulin 3.9 H, Albumin/Globulin Ratio 1.1 11/16/20 00:05: Lactate 2.0 11/16/20 00:05: Procalcitonin 0.123 I & O for Last 24 hours: Intake & Output 11/13/20 11/14/20 11/15/20 11/16/20 11:59 11:59 11:59 11:59 Intake Total 1250 / 1250 Balance 1250 / 1250 Weight 59.874 kg Microbiology Reports for the Last 24 Hours: Microbiology 11/16/20 01:45 Nasopharyngeal Coronavirus COVID-19 PCR - Final - Constitutional Comments: Emotional. Mild distress. Nontoxic. Nonseptic. - *Routine Respiratory Exam Comments: Chest clear to auscultation bilaterally. - *Routine Cardiovascular Exam Comments: Regular rate and rhythm.
--- NOTE | 2020-11-16 11:45 | P.OP_ITS ---
Date of procedure: 11/16/20 Pre-op Diagnosis:: Right upper extremity abscess. Post-op Diagnosis:: Right upper extremity abscess. Procedure performed:: Incision and drainage of right upper extremity abscess. Surgeon:: Omar Cortez MD SHOT POLISHER AND INSPECTOR:: Samuel Latif Anesthesia: LMA Estimated blood loss (mL): 2 Operative findings:: Right upper extremity abscess distal forearm. Superficial. Operative note:: Patient was properly defined consent was obtained. Patient was brought to the operating room. LMA administered. Right upper extremity was prepped and draped in standard surgical fashion. Right upper extremity/distal forearm demonstrated area of induration and fluctuance. Mild erythema extending to the wrist. The apex of fluctuance was incised with scalpel blade. Approximately 10 mL of pus was evacuated. Abscess cavity was located superficially. Irrigated with 50 mL of saline irrigation. No muscle involvement. No evidence of necrotizing soft tissue infection. Wound clean. Packed lightly with 1 inch Alexi gauze. Wrapped with Kerlix lightly. This completed procedure. Patient tolerated procedure well. Transferred to the postanesthetic care unit without surgical or anesthetic complication. Condition: stable Disposition: PACU Specimens:: None. Complications:: No immediate complications.
--- NOTE | 2020-11-16 11:56 | P.PN_ITS ---
[facility] Anesthesia Record Part I Intake, IV Amount: 200 Estimated blood loss (mL): 0 Urine output (mL): 0 Blood Pressure: 107/51 SaO2: 96 Pulse Rate: 85 Respiratory Rate: 12 Temperature: 97.7 F Patient is:: Awake, Stable Stable to PACU at:: 11:50
--- NOTE | 2020-11-16 12:31 | PC.NURSE ---
1219-detailed report called to ALEJANDRO Landin 1220-pt transported to med/surg room 209 via hospital bed w/cait rails up and left in care of ALEJANDRO Landin with bed locked in lowest position, vss, pt stable
--- NOTE | 2020-11-16 13:10 | HMH.PHAVTE ---
[facility] Pharmacy VTE Monitoring - Patient Demographics Admission date: 11/16/20 Report Date: 11/16/20 Time: 13:10 Allergies/Adverse Reactions: Patient Allergies ibuprofen [IBUPROFEN] Allergy (Severe, Verified 04/19/19 20:56) S-XDHIKO-KUMC/THROAT shellfish derived Allergy (Intermediate, Verified 10/30/20 08:13) Rash Height: 1.8 m Weight: 59.874 kg Patient Problems: Current Active Problems Elevated liver enzymes (Acute) Abscess of skin or subcutaneous tissue (Acute) IVDU (intravenous drug user) (Acute) SIRS (systemic inflammatory response syndrome) (Acute) - VTE Risk Labs: VTE Related Lab Results Hgb 14.0 g/dL (14.1-18.0) L 11/16/20 00:05 Hct 44.2 % (42.0-52.0) 11/16/20 00:05 Plt Count 270 K/mm3 (142-424) 11/16/20 00:05 BUN 12 mg/dl (9-20) 11/16/20 00:05 Creatinine 0.80 mg/dl (0.66-1.25) 11/16/20 00:05 Estimated Creat Clear 114 mL/min (50-200) 11/16/20 00:05 VTE Score: 2 - Prophylaxis VTE Prophylaxis Ordered?: Yes Types of VTE Prophylaxis: TEDS Knee High Location of Applied Device: Bilateral Lower Extremeties
--- NOTE | 2020-11-16 13:13 | HMH.PHAINT ---
PATIENT DOES NOT TAKE ANY HOME MEDICATIONS. FINISHED A 10 DAY SUPPLY OF TRAMADOL ON 11/13/20.
--- NOTE | 2020-11-16 16:18 | PC.NURSE ---
Pt has been pleasant and cooperative this shift. A&O X4. Pt is post-operative from an I&D of a RT forearm abscess. Pt has complained of pain X2 and received Morphine per MAR with favorable results. Pt is on room air with sats. >90%. Lungs CTA. No edema noted. Surgical dressing is C/D/I. Pt ambulates independently to/from the bathroom and throughout the room. 16 G peripheral IV in the LT AC is patent and infusing NS @ 100 ML/HR. VSS. Call light within reach. Will continue to monitor.
--- NOTE | 2020-11-17 03:06 | PC.NURSE ---
No acute changes. DSG to RUE is intact. Small drainage noted to DSG that is unchanged from prior assessment. Pt has c/o throbbing pain this shift. Medicated per nov. Pt has been up to shower. Appetite has been good. Pt has snacked t/o night. VSS. Pt has remained afebrile. Lungs CTA. BS active. Last BM 11/16. No other concerns at this time. Will continue to monitor.
[2020-11-17 03:50] VITALS: BP 117/59; PULSE 84; RESP 17; TEMP 36.6; O2SAT 96
[2020-11-17 04:50] VITALS: BMI 19.1
[2020-11-17 06:15] LABS: Basophils # 0.1 K/mm3 (0-0.2); Basophils % 0.6 % (0.1-2.0); Eosinophils # 0.7 K/mm3 (0.0-0.4); Hematocrit 38.1 % (42.0-52.0); Hemoglobin 11.9 g/dL (14.1-18.0); Lymphocytes # 3.9 K/mm3 (0.7-4.5); Lymphocytes % 35.9 % (10-50); Mean Corpuscular HGB Conc 31.2 g/dL (31.8-35.4); Mean Corpuscular Hemoglobin 26.6 pg (27.0-31.2); Mean Corpuscular Volume 85.3 fl (80-94); Mean Platelet Volume 9.2 fl (7.4-10.4); Monocytes # 0.8 K/mm3 (0.1-1.0); Monocytes % 7.7 % (1.7-9.3); Neutrophils # 5.4 K/mm3 (1.8-7.8); Neutrophils % 49.8 % (37.0-80.0); Platelet Count 237 K/mm3 (142-424); Red Blood Count 4.46 M/mm3 (4.60-6.20); Red Cell Distribution Width 13.1 % (11.5-17.5); White Blood Count 10.8 K/mm3 (4.8-10.8)
[2020-11-17 08:00] VITALS: BP 139/64; PULSE 69; RESP 16; TEMP 36.8; O2SAT 97
--- NOTE | 2020-11-17 08:45 | HMH.ACPN2 ---
<Janessa Springer - Last Filed: 11/17/20 08:45> Internal Medicine - PN: Subj *Date: 11/17/20 *Time: 08:45 Interval history: Patient awakened for assessment. He states his arm hurts. He request pain medicine. He states he is eating well and is still hungry. He denies chest pain and shortness of breath. He ambulates in the room without difficulty. He is receiving IV morphine every 4 hours. Laboratory data shows a normal white blood cell count this a.m. with a hemoglobin of 11.9 and hematocrit of 38.1. Exam Vital signs and Labs for Last 24 Hours: Temp Pulse Resp BP Pulse Ox 98.2 F 69 16 139/64 97 11/17/20 08:00 11/17/20 08:00 11/17/20 08:00 11/17/20 08:00 11/17/20 08:00 Laboratory Results - last 24 hr 11/17/20 05:59: WBC 10.8 D, RBC 4.46 L, Hgb 11.9 L, Hct 38.1 L, MCV 85.3, MCH 26.6 L, MCHC 31.2 L, RDW 13.1, Plt Count 237, MPV 9.2, Neut % (Auto) 49.8, Lymph % (Auto) 35.9, [place] % (Auto) 7.7, Eos % (Auto) 6.0, Baso % (Auto) 0.6, Neut # (Auto) 5.4, Lymph # (Auto) 3.9, [place] # (Auto) 0.8, Eos # (Auto) 0.7 H, Baso # (Auto) 0.1 I & O for Last 24 hours: Intake & Output 11/14/20 11/15/20 11/16/20 11/17/20 11:59 11:59 11:59 11:59 Intake Total 1450 / 1450 2183 / 2183 Balance 1450 / 1450 2183 / 2183 Weight 132 lb 137 lb Microbiology Reports for the Last 24 Hours: Microbiology 11/16/20 01:45 Nasopharyngeal Coronavirus COVID-19 PCR - Final - Constitutional no acute distress Comments: Awakened for assessment - *Routine Respiratory Exam Present: CTA bilaterally (Anteriorly and posteriorly) - *Routine Cardiovascular Exam Present: RRR - *Routine Extremities Exam Comments: Dressing on right forearm is clean and dry - *Routine Neurological Exam Present: alert, oriented X3 Assessment and Plan (1) Abscess of skin or subcutaneous tissue Status: Acute Qualifiers: Site of cutaneous abscess: extremity Site of cutaneous abscess of extremity: upper extremity Laterality: right Qualified Code(s): L02.413 - Cutaneous abscess of right upper limb Category: Medical Code(s): L02.91 - Cutaneous abscess, unspecified (2) IVDU (intravenous drug user) Status: Acute Category: Social Hx Code(s): F19.90 - Other psychoactive substance use, unspecified, uncomplicated (3) Medical non-compliance Status: Acute Category: Medical Code(s): Z91.19 - Patient's noncompliance with other medical treatment and regimen - Assessment and plan all Dx Assessment and Plan for all problems:: Surgery will follow. Continue IV vancomycin. <Tomas Espino - Last Filed: 11/17/20 18:36> Internal Medicine - PN: Subj *Date: 11/17/20 *Time: 18:35 Exam Vital signs and Labs for Last 24 Hours: Temp Pulse Resp BP Pulse Ox 98.2 F 69 16 139/64 97 11/17/20 08:00 11/17/20 08:00 11/17/20 08:00 11/17/20 08:00 11/17/20 08:00 Laboratory Results - last 24 hr 11/17/20 05:59: WBC 10.8 D, RBC 4.46 L, Hgb 11.9 L, Hct 38.1 L, MCV 85.3, MCH 26.6 L, MCHC 31.2 L, RDW 13.1, Plt Count 237, MPV 9.2, Neut % (Auto) 49.8, Lymph % (Auto) 35.9, [place] % (Auto) 7.7, Eos % (Auto) 6.0, Baso % (Auto) 0.6, Neut # (Auto) 5.4, Lymph # (Auto) 3.9, [place] # (Auto) 0.8, Eos # (Auto) 0.7 H, Baso # (Auto) 0.1 11/17/20 09:47: Vancomycin Trough 9.3 I & O for Last 24 hours: Intake & Output 11/15/20 11/16/20 11/17/20 11/18/20 11:59 11:59 11:59 11:59 Intake Total 1450 / 1450 2183 / 2183 480 / 480 Balance 1450 / 1450 2183 / 2183 480 / 480 Weight 132 lb 137 lb Microbiology Reports for the Last 24 Hours: Microbiology 11/17/20 09:45 Arm,Left - Wound Gram Stain - Final Assessment and Plan (1) Abscess of skin or subcutaneous tissue Status: Acute Qualifiers: Site of cutaneous abscess: extremity Site of cutaneous abscess of extremity: upper extremity Laterality: right Qualified Code(s): L02.413 - Cutaneous abscess of right upper limb Category: Medic
[2020-11-17 10:59] LABS: Vancomycin,Trough 9.3 ug/mL (5.0-10.0)
--- NOTE | 2020-11-17 11:07 | SW/DCPLANNER ---
Addendum entered by Lora Jensen 11/18/20 13:21: Patient never picked up prescription from [facility]. Addendum entered by Lora Jensen 11/17/20 14:00: Patients nurse (Mayuri) has stated that patients friend (Asha) regarding transportation. [facility] has also stated that they will fill prescription for $15. Mayuri has informed patients friend Asha that she will need to chart picker medications from [facility] and is agreeable to pay for medication. Patient will discharge home today. Original Note: I have spoke with this patient regarding medication prices: [facility] $50 and [facility] $17. Patient stated I am not going to get the medicine because I can not afford it . I attempted to have discussion with patient regarding speaking with family members or friends regarding payment of medication and he was quick to say no . Patient did not open his eyes and engage in conversation with me at all. I left patient a note with medication prices. I have also informed Dr Espino of this situation. Patient is to discharge home later today after Vanc dose.
--- NOTE | 2020-11-17 13:27 | PC.NURSE ---
Notified patients friend (per patient) that he is being discharged and that he has antibiotics to chart picker at [facility]. Friend verbalized understanding and stated she would be here in 1 1/2 hrs to pick him up.
--- NOTE | 2020-11-18 09:03 | P.PN_ITS ---
[facility] Anesthesia Record Part II Discharge Time: 12:20 Destination: Medical Surgical Department PACU nurse assessment reviewed?: Yes Patient Condition:: Good Anesthesia Complications:: None Swallowing reflex intact?: Yes Cyanosis?: No Blood Pressure: 122/67 Pulse Rate: 76 Temperature: 97.5 F Mental Status: Alert & Oriented Pain level:: 0 Nausea and/or vomitting:: None Intake, IV Amount: 0
[2020-11-18 09:04] VITALS: BP 122/67; PULSE 76; TEMP 36.4
--- NOTE | 2020-11-18 17:39 | HMH.DCSUM ---
General - General Admission date:: 11/16/20 <Tomas Espino - 12/26/20 13:15> 11/16/20 <Agnes Cavanaugh - 11/18/20 17:42> Discharge date: 11/17/20 <Agnes Cavanaugh - 11/18/20 17:42> HPI HPI: Enrique is a 30-year-old white male with a history of IV drug abuse who was recently hospitalized here from 10/30/2020 through 11/02/2020 with a left antecubital abscess. This was I&Ded by surgery and cultures grew out staph epidermidis and staph Arginosus. He was discharged home on oral antibiotics but did not fill his prescriptions. He returned to the ER last night with a new abscess on his right forearm and has been admitted for surgical consultation. <Agnes Cavanaugh - 11/18/20 17:42> Hospital Course Hospital Course: The patient was admitted for surgical consult and started on IV antibiotics. He was seen by Dr. Cortez who performed an I&D of the right upper extremity abscess on 11/16/2020. By 11/17/2020, the patient stated his arm hurt and requested pain medication. He was taking IV morphine every 4 hours. His white blood cell count normalized. He was stable to be discharged home and care management will assist in obtaining his outpatient antibiotics. He will follow-up with surgery in 2 days for recheck. <Agnes Cavanaugh - 11/18/20 17:42> Objective Vital signs: Temp Pulse Resp BP Pulse Ox 97.5 F L 76 16 122/67 97 11/18/20 09:04 11/18/20 09:04 11/17/20 08:00 11/18/20 09:04 11/17/20 08:00 <Tomas Espino - 12/26/20 13:15> Temp Pulse Resp BP Pulse Ox 97.5 F L 76 16 122/67 97 11/18/20 09:04 11/18/20 09:04 11/17/20 08:00 11/18/20 09:04 11/17/20 08:00 <Agnes Cavanaugh - 11/18/20 17:42> Narrative: - Constitutional no acute distress Comments: Drowsy - *Routine HEENT Exam Head: Present: normocephalic, atraumatic Eye: Present: EOMI, scleral injection ENT: Present: mucous membranes moist - *Routine Neck Exam Present: supple. Absent: lymphadenopathy, meningismus - *Routine Respiratory Exam Present: CTA bilaterally - *Routine Cardiovascular Exam Present: RRR. Absent: murmur - *Routine Abdominal Exam Present: soft. Absent: tenderness, distended - *Routine Extremities Exam Absent: clubbing, edema - *Routine Skin Exam Comments: Scabbed lesion in left medial antecubital area appears to be healing. 2 x 3 cm abscess right forearm. <Agnes Cavanaugh - 11/18/20 17:42> Results Labs on day of discharge: Preliminary micro results at discharge 11/17/20 09:45 Wound Culture - Preliminary Arm,Left - Wound NO GROWTH AFTER 24 HOURS 11/16/20 00:05 Blood Culture - Preliminary Blood NO GROWTH AFTER 48 HOURS 11/16/20 00:05 Blood Culture - Preliminary Blood NO GROWTH AFTER 48 HOURS <Agnes Cavanaugh 11/18/20 17:42> DS: Diagnosis - Discharge Diagnosis (1) Abscess of skin or subcutaneous tissue Status: Acute (2) IVDU (intravenous drug user) Status: Acute (3) Medical non-compliance Status: Acute <Agnes Cavanaugh - 11/18/20 17:39> (1) Abscess of skin or subcutaneous tissue Status: Acute (2) IVDU (intravenous drug user) Status: Acute (3) Medical non-compliance Status: Acute <Tomas Espino - 12/26/20 13:15> Discharge Plan - Patient Discharge Instructions ACTIVITY: Continue current activity <Agnes Cavanaugh - 11/18/20 17:42> DIET: regular diet <Agnes Cavanaugh 11/18/20 17:42> Patient Instructions: DI for Debridement of a Wound, Infection, or Burn, DI for Surgical Site Infection, DI for Skin Abscess <Tomas Espino - 12/26/20 13:15> Forms: <Tomas Espino 12/26/20 13:15> - Follow up Plan Follow up with: Carlitos Edgar MD [Staff Physician] - 11/19/20 2:30 pm <Tomas Espino - 12/26/20 13:15> Disposition: Home, Self-Care <Tomas Espino 12/26/20 13:15> Home Medications: Home Medications Medication Instructions Recorded Confirmed
== END 2020-11-17 15:14 | disposition home or self-care (01) | DRG 603 ==
LOC: ER 23:58 → 2ND 11-16 02:18
PROVIDERS: Surgery; Admitting Provider Family Medicine; Emergency Provider Emergency Medicine; Visit Provider Family Medicine
DX: L02.413 Cutaneous abscess of right upper limb (principal); B95.7 Other staphylococcus as the cause of diseases classified elsewhere; Z72.0 Tobacco use; Z91.19 Patient's noncompliance with other medical treatment and regimen; F11.10 Opioid abuse, uncomplicated
CPT/HCPCS: 10061; 36415; 80053; 80202; 83605; 84145; 85007; 85025; 85651; 86140; 87040; 87070; 87077; 87186; 87205; 96365; 96367; 99284; J2405; J3370; U0003